=== PATIENT | male | born 1955 | race Caucasian/White ===

== ENCOUNTER 2018-09-25 20:11 | Emergency (ER) | payer BC, SELFPAY ==
[2018-09-25 20:22] VITALS: BP 142/83; PULSE 78; RESP 16; TEMP 36.8; O2SAT 96
[2018-09-25 21:14] LABS: Abs Immature Grans 0.05 k/cumm (0.0-0.09); HCT 51.2 % (40.0-50.0); Mean Corp. HGB Concentration 35.2 g/dL (32.0-36.0); Mean Corpuscular Hemoglobin 30.7 pg (27.0-33.0); Mean Corpuscular Volume 87.2 fL (80-95); Mean Platelet Volume 10.5 fL (8.0-11.0); Platelet Count 198 x1000/uL (130-400); RBC 5.87 m/cumm (4.50-6.00); RBC Distribution Width 12.7 % (11.8-14.1)
[2018-09-25 21:25] LABS: ALT 23 U/L (12-78); AST 17 U/L (15-37); Albumin 3.7 g/dL (3.4-5.0); Alkaline Phosphatase 90 U/L (46-116); Anion Gap 7.9 mmol/L (3-11); BUN 16 mg/dL (7-18); Bilirubin, Total 0.7 mg/dL (0.2-1.0); CO2 34.1 mmol/L (21.0-32.0); CREATININE 1.21 mg/dL (0.70-1.30); Calcium 8.8 mg/dL (8.5-10.1); Chloride 98 mmol/L (98-107); Glucose 123 mg/dL (70-100); Sodium 140 mmol/L (136-145); Total Protein 8.4 g/dL (6.4-8.2)
[2018-09-25 21:28] LABS: Potassium 2.8 mmol/L (3.5-5.1)
[2018-09-25 21:36] LABS: Absolute Lymphocyte Count 0.92 k/cumm (1.2-3.4); Absolute Monocyte Count 2.19 k/cumm (0.11-0.7); Atypical Lymphocytes % 0; Diff Comment Manual Differential; RBC Morphology Normal
[2018-09-25] MEDS: Acetaminophen 500 MG TAB 1000 MG PO (21:48)
[2018-09-25] MEDS: Sulfameth/Trimeth DS TAB 2 TAB PO (21:48)
--- NOTE | 2018-09-25 21:51 | W.ED.GENAD ---
Discharge Plan Disposition Patient Disposition: HOME Condition: Stable Discharge Details Chief Complaint: Cellulitis Clinical Impression: Cellulitis of foot, left, Hypokalemia Reason For Visit: left foot redness /pain Primary Care Provider: Rony Treviño ED Provider: Navneet Ryan Home Meds and New Rx's Prescriptions: New sulfamethoxazole-trimethoprim [Bactrim DS] 800-160 mg tablet 1 tab PO BID Qty: 10 RF: 0 Continued chlorthalidone 25 mg Tablet 25 mg PO DAILY RF: 0 diltiazem HCl 120 mg Capsule,Ext.Rel 24h Degradable 120 mg PO DAILY RF: 0 Curcumin 95 % Powder RF: 0 cephalexin [Keflex] 500 mg Capsule 500 mg PO Q6H RF: 0 Discharge Instructions Instructions: Cellulitis (ED), Hypokalemia (ED) Additional Instructions: Please continue to take your antibiotics as prescribed and until fully completed. Each potassium rich foods over the next couple days and follow-up with your primary care provider for reassessment of your labs due to your low potassium. Feel free to return to the emergency department for any new or worsening concerns, worsening symptoms after continued antibiotic for 24 hours, or no improvement after 48 hours. Referrals: Rony Treviño [Primary Care Provider] - 1 week (Please call the office and inform your primary care provider of your low potassium and cellulitis and schedule follow-up appointment) Discharge Data Discharge Date/Time-TO BE ENTERED AT DEPARTURE: 09/25/18 22:51 Medical Decision Making Patient presenting the emergency department for chief complaint of left foot cellulitis. Patient states he noticed this 3 days ago and 2 days ago saw a urgent care clinic that placed him on Keflex. Patient states he has taken approximately 7 doses as recommended but has noticed worsening symptoms. Patient denies any fever chills, nausea vomiting or systemic symptoms but localized ankle pain and foot pain. Patient states this started on his dorsal aspect of the distal foot and is now traveling approximately. Patient has significant erythema to the distal aspect of the dorsal left foot with spread of erythema up through the anterior ankle and both medial and lateral aspects of the ankle. Patient does have significant pain on range of motion of ankle but no significant effusion noted. Concern for worsening cellulitis so plan to check labs, give IV antibiotics, and draw blood cultures. Review of results show significant leukocytosis, hypokalemia, otherwise nondiagnostic labs. Patient given IV dose of cefazolin and, 2 tabs of Bactrim, and 60 mEq of potassium. Patient is on chlorothiazide own and was able to pull up previous labs which patient's potassium typically runs 3.5. Patient states that he has not been eating much potassium rich foods which she normally does to control his moderately low potassium. Patient was encouraged to increase oral intake of dietary potassium and to follow-up with primary care in regards to low potassium. Patient was informed that he should continue on Keflex 4 times daily as prescribed and was prescribed Bactrim 1 tab twice daily. Patient informed to return for any significant worsening of symptoms, or no improvement after 48 hours of antibiotic. After discussion of diagnosis and plan of care patient and significant other have no further needs, questions, or concerns and states clear understanding to return to the emergency department for any worsening symptoms. HPI General Mode of arrival: ambulatory. Date/Time Provider Initiated Documentation: 09/25/18 20:12. Limitations to Documentation: no limitations. Information obtained by: patient, family and RN notes reviewed. History of Present Illness 63 year old M presents to the emergency department with the chief complaint of left foot infection, described as moderate, with intensity rated at 6. Quality is described as aching and sharp, and is localized to the left and lower extremity. Patient started experiencing this day(s) (4) and it has been constant. No relieving factors improve symptom(s), No exacerbating factors reported . Patient notes no other symptoms.. Patient did receive the following treatments prior to arrival, other (Keflex) Related Data Home Medications Medication Instructions Recorded Confirmed Curcumin 09/25/18 cephalexin [Keflex] 500 mg PO Q6H 09/25/18 09/25/18 chlorthalidone 25 mg PO DAILY 09/25/18 09/25/18 diltiazem HCl 120 mg PO DAILY 09/25/18 09/25/18 sulfamethoxazole-trimethoprim 1 tab PO BID #10 tab 09/25/18 [Bactrim DS] Previous Rx's Medication Instructions Recorded sulfamethoxazole-trimethoprim 1 tab PO BID #10 tab 09/25/18 [Bactrim DS] Allergies Allergy/AdvReac Type Severity Reaction Status Date / Time amoxicillin Allergy Unverified 09/25/18 20:26 General Stated Complaint: Cellulitis GENNARO: 3 Review of Systems Constitutional Denies body ache(s), Denies chills and Denies fever(s) Cardiovascular Denies chest pain and Denies dyspnea Respiratory Denies dyspnea Gastrointestinal Denies abdominal pain, Denies nausea and Denies vomiting Integumentary/Breasts Reports rash [facility] Social History Smoking and Tabacco status: Never Exam Const General: cooperative, no acute distress and not ill appearing Orientation: alert, awake and oriented x3 HENMT Mouth: moist mucous membranes Resp Effort & Inspection: normal respiratory effort, able to speak in complete sentences and no respiratory distress Cardio Rate: regular rate Rhythm: regular rhythm Skin General skin exam: erythema (Dorsal left foot streaking proximally through ankle) Extrem Left lower extremity: ankle Details: tenderness Location: of the lateral malleolus, of the medial malleolus and anteriorly, no edema and abnormal ROM Details: pain with active ROM; no swelling and foot Details: normal capillary refill, tenderness Location: of the dorsal foot, warmth Location: of the dorsal foot, no edema and vascular exam Details: dorsalis pedis pulse present, posterior tibial pulse present and normal capillary refill Course Vital Signs Temperature 36.8 C 09/25/18 20:22 Pulse 78 09/25/18 20:22 Respiratory Rate 16 09/25/18 20:22 Blood Pressure 142/83 H 09/25/18 20:22 Pulse Oximetry 96 09/25/18 20:22 Temperature 36.8 C 09/25/18 20:22 Temperature Source Temporal Artery Scan 09/25/18 20:22 Pulse 78 09/25/18 20:22 Respiratory Rate 16 09/25/18 20:22 Respiratory Effort 09/25/18 21:07 Blood Pressure 142/83 H 09/25/18 20:22 Blood Pressure Position Supine 09/25/18 20:22 Pulse Oximetry 96 09/25/18 20:22 Oxygen Delivery Method Room Air 09/25/18 20:22 Oxygen Flow Rate 0 09/25/18 20:22 Lab/Test Results Lab/Test Results: 09/25/18 21:16 Blood Blood Culture - Pending 09/25/18 21:00 Blood Blood Culture - Pending Laboratory Tests Range/Units 09/25/18 09/25/18 21:00 21:00 WBC (4.4-10.8) k/cumm 11.50 H RBC (4.50-6.00) m/cumm 5.87 Hgb (13.5-17.5) g/dL 18.0 H Hct (40.0-50.0) % 51.2 H MCV (80-95) fL 87.2 MCH (27.0-33.0) pg 30.7 MCHC (32.0-36.0) g/dL 35.2 RDW (11.8-14.1) % 12.7 Plt Count (130-400) x1000/uL 198 MPV (8.0-11.0) fL 10.5 Immature Gran % 0.0 Neutrophils % 73.0 Band Neutrophils % % 0.0 Lymphocytes % 8.0 Atypical Lymphs % 0 Monocytes % 19.0 Eosinophils % 0.0 Basophils % 0.0 Absolute Neutrophils (1.2-6.7) k/cumm 8.40 H Absolute Lymphocytes (1.2-3.4) k/cumm 0.92 L Absolute Monocytes (0.11-0.7) k/cumm 2.19 H Absolute Eosinophils (0.0-0.7) k/cumm 0.00 Absolute Basophils (0.0-0.2) k/cumm 0.00 Differential Comment Manual differential RBC Morphology Normal Sodium (136-145) mmol/L 140 Potassium (3.5-5.1) mmol/L 2.8 L* Chloride (98-107) mmol/L 98 Carbon Dioxide (21.0-32.0) mmol/L 34.1 H Anion Gap (3-11) mmol/L 7.9 BUN (7-18) mg/dL 16 Creatinine (0.70-1.30) mg/dL 1.21 Estimated GFR/1.73 m2 (mL/min/1.73m2) >= 60.00 Glucose (70-100) mg/dL 123 H Calcium (8.5-10.1) mg/dL 8.8 Total Bilirubin (0.2-1.0) mg/dL 0.7 AST (15-37) U/L 17 ALT (12-78) U/L 23 Alkaline Phosphatase (46-116) U/L 90 Total Protein (6.4-8.2) g/dL 8.4 H Albumin (3.4-5.0) g/dL 3.7
[2018-09-25 22:25] VITALS: BP 135/76; PULSE 64; TEMP 37.1; O2SAT 95
[2018-09-25] MEDS: Potassium Chloride 20 MEQ TABCR 60 MEQ PO (22:34)
== END 2018-09-25 22:51 | disposition home or self-care (01) ==
PROVIDERS: Emergency Provider Nurse Practitioner Family; PCP Internal Medicine
DX: L03.116 Cellulitis of left lower limb (principal); E87.6 Hypokalemia
CPT/HCPCS: 36415; 80053; 87040; 96365; 99284; 85025

== ENCOUNTER → 2020-04-30 08:03 | Outpatient (BNVA) | payer MEDICARE, BC, SELFPAY | PROVIDERS: PCP Internal Medicine; Referring Provider Internal Medicine; Visit Provider Student in an Organized Health Care Education/Training Program | DX: R69 Illness, unspecified (principal) ==

== ENCOUNTER 2020-04-30 09:19 | Day surgery (SDC) | payer MEDICARE, BC, SELFPAY ==
[2020-04-30 09:33] VITALS: BP 139/75; PULSE 67; RESP 16; TEMP 36.7; O2SAT 95
[2020-04-30] MEDS: Lactated Ringers 1,000 ML 80 ML IV (10:00)
--- NOTE | 2020-04-30 10:24 | W.PM.DSUDISC ---
Discharge Plan Disposition Patient Disposition: HOME Condition: Good Discharge Details Reason For Visit: Left Carpal Tunnel Syndrome Attending Provider: Raz Wesley Primary Care Provider: Rony Treviño [place] Meds and New Rx's Prescriptions: New acetaminophen 500 mg tablet 500 mg PO Q6H PRN PRN (Reason: pain) Qty: 40 RF: 3 hydrocodone-acetaminophen 5-325 mg tablet 1 tab PO Q8H PRN PRN (Reason: pain) Qty: 3 RF: 0 ibuprofen 600 mg tablet 600 mg PO TID PRNQty: 30 RF: 3 Continued atorvastatin 20 mg tablet 20 mg PO DAILY RF: 0 gabapentin 300 mg capsule 300 mg PO QHS RF: 0 diltiazem HCl 120 mg Capsule,Ext.Rel 24h Degradable 120 mg PO DAILY RF: 0 Discharge Instructions Stand Alone Forms: Maryjane Boyle Tunnel Release Referrals: Raz Wesley MD [ [facility] STAFF PHYSICIAN] - Activity:: Elevate Remove Dressings/Wound Care:: 48 hours Shower/Bathe:: 48 hours Diet:: As Tolerated Discharge Orders Discharge Orders: Discharge Order (Routine); Ordered 04/30/20 Ordered By: Raz Wesley DS: Diagnosis Discharge Diagnosis (1) Left carpal tunnel syndrome: Status: Acute
[2020-04-30] MEDS: ceFAZolin 2 GM/50 ML BAG IVPB (10:32)
[2020-04-30] MEDS: Sodium Bicarbonate 50 MEQ/50 ML VIAL (10:39)
[2020-04-30 12:02] VITALS: BP 125/81; PULSE 60; RESP 16; TEMP 36.5; O2SAT 93
--- NOTE | 2020-04-30 12:11 | W.PM.OP ---
Date of service: 04/30/20 Time of Service: 11:34 Operative Note Operative Note DATE OF PROCEDURE: 04/30/20 POST-OP DIAGNOSIS: same PROCEDURE: Left Endoscopic Carpal Tunnel Release SURGEON: Raz Wesley ANESTHESIA: IRIS ESTIMATED BLOOD LOSS: 0 PATHOLOGY: none sent TOURNIQUET TIME: 36 COMPLICATIONS: Other (The scope had someting on the inside of the lens which prevented using it. There were no other ECTR scopes available so I had to use the ENT camera inside the ECTR housing.) Patient was transported to: same day Patient's condition: stable Indications: I have seen Chapito in clinic for symptoms of carpal tunnel syndrome. The numbness, tingling, and pain limited function. Clinical exam findings confirmed the diagnosis of carpal tunnel syndrome. Nonoperative measures such as bracing, time, activity modifications had been tried but disability and pain persisted. I discussed carpal tunnel release with the patient. I reviewed the risks of the procedure to include, but not limited to, bleeding, infection, pain, stiffness, incomplete release, damage to nerves or vessels, persistent numbness, recurrence. Despite these risks, the patient elected to proceed. Findings: There was tightened carpal tunnel. This was dilated and released successfully with the endoscopic with increased space within the tunnel. The antebrachial fascia was released proximally freeing the median nerve at the wrist. Procedure Description: Chapito was greeted in the preoperative holding area where the correct side was identified and marked. The consent was reviewed with the patient and signed. The history and physical was updated. All questions were answered. He was taken back to the operating room. The patient was placed into the supine position on the operating room table with the left arm on an arm board. A nonsterile tourniquet was placed high onto the arm. All bony prominences were well padded. Prophylactic antibiotics in the form of Cefazolin were administered. The left arm was then prepped with Chloraprep and draped in a standard fashion with stockinette and extremity drape. A timeout to confirm correct identity, side and site, procedure, allergies, anesthesia, and medical concerns was performed. The surgical site was marked in the volar wrist creases in line with the radial border of the fourth ray. This area was anesthetized with approximately 6cc of 1% Lidocaine. The limb was then exsanguinated with an Esmarch. The skin was incised with a 15 blade, approximately 1cm. The skin only was cut and the deeper tissue was dissected bluntly with a tenotomy scissor, avoiding passing nerve and venous structures. The fascia was penetrated and opened bluntly. A two-prong skin hook was placed under this proximal fascial edge. A series of hamate finders were used to identify and dilate the carpal tunnel. Synovial elevator was used to free synovial attachments to the underside of the transverse carpal ligament. My thumb was kept in the palm to nicko the distal extent of the carpal tunnel and correctly position the hand. The Microaire endoscope was inserted without difficulty and without resistance. However, there was poor visulaization. The scope was removed from the hand and inspected. All typical spots of issue were investigated but did not seem to have any issues with fogging or debris on the lens. This troubleshooting continued until was identified that there was fog and condensation on the inside of the lens of the camera. Unfortunately, there were no additional cameras for the ECT our system available. However, ENT camera was able to fit into the system and therefore was used. This provided excellent visualization. There was a lot of synovium in the area which made the case quite challenging either way. However, eventually I was able to demonstrate horizontally running fibers of the transverse carpal ligament (TCL). The distal extent of the TCL was visualized and the end of the scope palpated with the thumb. The blade was elevated and withdrawn from distal to proximal. The TCL was split into two flaps. The endoscope was reinserted to confirm complete release and any remnant ligament was incised. The scope was withdrawn and the proximal aspect of the carpal tunnel was grossly inspected and appeared release with the median nerve visible. The antebrachial fascia at the level of the wrist was then freed from the overlying skin and then the underlying median nerve with blunt dissection. This was transected longitudinally for about 3cm proximal to the wrist incision. The wound was then irrigated with easy flow of irrigant distally and proximally. The incision was closed with a single 4-0 Nylon suture. The wound was dressed with Xeroform, Gauze, Kerlix and Manolo. The tourniquet was deflated with the initial dressing and held with some pressure. Blood flow returned easily to all digits with capillary refill less than 2 seconds. The patient tolerated the procedure well and was returned to the Same Day Surgery area in a stable condition suffering no known complication.
== END 2020-04-30 12:27 | disposition home or self-care (01) ==
PROVIDERS: PCP Internal Medicine; Visit Provider Student in an Organized Health Care Education/Training Program
PROC: 01N54ZZ Release Median Nerve, Percutaneous Endoscopic Approach (ICD-10-PCS; CPT 29848; principal; 2020-04-30 12:30)
DX: G56.02 Carpal tunnel syndrome, left upper limb (principal); I10 Essential (primary) hypertension
CPT/HCPCS: 29848; J0690; J2704; L3650

== ENCOUNTER 2020-05-08 09:28 | Outpatient (CLI) | payer MEDICARE, BC, SELFPAY ==
--- NOTE | 2020-05-08 09:00 | DI.RAD_ITS ---
EXAM: XR KNEE LT 4V AP,LAT,BIBIANA,PAT CLINICAL HISTORY: acute knee pain TECHNIQUE: COMPARISON: No exams were available for comparison FINDINGS: Four views were obtained. There is mild narrowing of the medial tibiofemoral cartilaginous joint spa ce presumably on a degenerative basis. There is mild narrowing of the lateral patellofemoral cartila ginous joint space. The bones of the knee appear intact. There is a probable knee joint effusion. IMPRESSION: Mild degenerative changes as described above. There appears to be a knee joint effusion. RADIATION DOSE DELIVERED: Total DLP
== END 2020-05-08 09:48 ==
PROVIDERS: PCP Internal Medicine; Referring Provider Internal Medicine; Visit Provider Physician Assistant Surgical
DX: M17.12 Unilateral primary osteoarthritis, left knee (principal); M25.462 Effusion, left knee; M25.562 Pain in left knee; G56.02 Carpal tunnel syndrome, left upper limb; S76.112A Strain of left quadriceps muscle, fascia and tendon, initial encounter; X50.9XXA Other and unspecified overexertion or strenuous movements or postures, initial encounter; Z47.89 Encounter for other orthopedic aftercare
CPT/HCPCS: 99214; 73564

== ENCOUNTER → 2020-06-05 09:10 | Outpatient (BNVA) | payer MEDICARE, BC, SELFPAY | PROVIDERS: PCP Internal Medicine; Referring Provider Internal Medicine; Visit Provider Student in an Organized Health Care Education/Training Program | DX: M25.562 Pain in left knee (principal) | CPT/HCPCS: 99213 ==

== ENCOUNTER 2020-06-16 00:28 | Outpatient (CLI) | payer MEDICARE, BC, SELFPAY ==
--- NOTE | 2020-06-16 | DI.MRI_ITS ---
EXAM: MR UPPER JOINT RT WO CLINICAL HISTORY: RT SHOULDER PAIN,M75.101,M12.811,OTHER SPECIFIC ARTHROPATHY. TECHNIQUE: Multiplanar multisequence MRI was performed. COMPARISON: No exams were available for comparison FINDINGS: The examination is limited due to patient motion artifact. BONES: There is no fracture or contusion pattern. JOINTS: Moderate degenerative changes are seen at the acromioclavicular joint. Mild degenerative destin nges are seen at the greater tuberosity. The glenohumeral joint is normal. There is superior subluxa tion of the humeral head relative to the glenoid consistent with rotator cuff tear. TENDONS: Supraspinatus: There is a complete tear of the supraspinatus tendon at its midpoint. There is retrac tion of the muscle to the level of the acromioclavicular joint. Infraspinatus: There may also be a partial tear of the infraspinatus tendon anteriorly. Subscapularis: There is thickening and increased signal in the subscapularis tendon consistent with a partial tear and/or tendinosis. Teres Minor: Unremarkable. Biceps and [place]: The biceps tendon is poorly visualized proximally. There may be medial subluxatio n of the tendon proximally. MUSCLES: There is mild fatty atrophy of the supraspinatus muscle. GLENOID LABRUM: Unremarkable on this noncontrast examination. SOFT TISSUES: Unremarkable. LIGAMENTS: Unremarkable. OTHER: There is fluid seen in the subacromial subdeltoid bursa consistent with rotator cuff tear. Th ere is fluid seen in the subcoracoid bursa. IMPRESSION: 1. Examination limited by patient motion artifact. 2. Complete tear of the supraspinatus tendon with retraction to the level of the acromioclavicular cedric int. 3. Findings suspicious for partial tears of the infraspinatus and subscapularis tendons. Question of medial subluxation of the biceps tendon proximally. 4. Degenerative changes in the acromioclavicular joint. DATA REPOSITORY:
--- NOTE | 2020-06-16 07:30 | DI.MRI_ITS ---
EXAM: MR LOWER JOINT LT WO CLINICAL HISTORY: MENISCAL INJURY,LT KNEE PAIN,S76.112A,M75.562. TECHNIQUE: Multiplanar multisequence MRI was performed. COMPARISON: CR XR KNEE LT 4V AP,LAT,BIBIANA,PAT from 05/08/2020 FINDINGS: BONES: Area of contusion involving the lateral tibial plateau. JOINTS: Articular cartilage is unremarkable. There is a large joint effusion. TENDONS: Extensor mechanism: Unremarkable. Medial retinaculum: Unremarkable. Lateral retinaculum: Unremarkable. Popliteus: Unremarkable. MUSCLES: Mild edema is seen in the popliteus muscle. MENISCI: There is an oblique tear of the body and posterior horn of the medial meniscus. The lateral meniscus is unremarkable. SOFT TISSUES: Unremarkable. LIGAMENTS: Anterior Cruciate: There is a torn anterior cruciate ligament. Posterior Cruciate: Unremarkable. Medial Collateral:Mild fluid is seen around the medial collateral ligament which may represent a spra in. Lateral Collateral: Unremarkable. OTHER: IMPRESSION: 1. Tear of the body and posterior horn of the medial meniscus. 2. Torn ACL. 3. MCL sprain. 4. Contusion in the lateral tibial plateau. 5. Large joint effusion DATA REPOSITORY:
== END 2020-06-16 00:48 ==
PROVIDERS: PCP Internal Medicine; Visit Provider Student in an Organized Health Care Education/Training Program
DX: S83.512A Sprain of anterior cruciate ligament of left knee, initial encounter (principal); S83.412A Sprain of medial collateral ligament of left knee, initial encounter; S83.222A Peripheral tear of medial meniscus, current injury, left knee, initial encounter; M25.462 Effusion, left knee; M75.121 Complete rotator cuff tear or rupture of right shoulder, not specified as traumatic; M19.011 Primary osteoarthritis, right shoulder
CPT/HCPCS: 73721; 73221

== ENCOUNTER 2020-07-04 02:26 | Outpatient (CLI) | payer MEDICARE, BC, SELFPAY ==
[2020-07-05 17:05] LABS: COVID-19 RT-PCR Result NEGATIVE (Negative)
== END 2020-07-04 02:46 ==
PROVIDERS: PCP Internal Medicine; Visit Provider Student in an Organized Health Care Education/Training Program
DX: Z11.59 Encounter for screening for other viral diseases (principal); Z01.818 Encounter for other preprocedural examination
CPT/HCPCS: U0003

== ENCOUNTER 2020-07-09 09:02 | Day surgery (SDC) | payer MEDICARE, BC, SELFPAY ==
[2020-07-09] VITALS (9 sets, daily range): BP systolic 135–153; BP diastolic 78–119; PULSE 65–72; RESP 12–18; TEMP 36–36.4; O2SAT 91–96
[2020-07-09] MEDS: Lactated Ringers 1,000 ML 30 ML IV (09:50)
[2020-07-09] MEDS: ceFAZolin 2 GM/50 ML BAG IVPB (11:15)
--- NOTE | 2020-07-09 11:22 | W.PM.DSUDISC ---
Discharge Plan Disposition Patient Disposition: HOME Condition: Good Discharge Details Reason For Visit: Right Rotator Cuff tear and Left Knee Internal [place] Attending Provider: Raz Wesley Primary Care Provider: Rony Treviño Home Meds and New Rx's Prescriptions: New acetaminophen 500 mg tablet 1,000 mg PO Q8H PRN (Reason: pain) Qty: 90 RF: 3 oxycodone 5 mg tablet 5 mg PO Q6H PRN PRNQty: 8 RF: 0 Continued gabapentin 300 mg capsule 300 mg PO QHS RF: 0 diltiazem HCl 120 mg Capsule,Ext.Rel 24h Degradable 120 mg PO DAILY RF: 0 rosuvastatin 5 mg tablet 5 mg PO DAILY RF: 0 ibuprofen 600 mg tablet 600 mg PO TID PRNQty: 90 RF: 3 Discontinued acetaminophen 500 mg tablet 500 mg PO Q6H PRN PRN (Reason: pain) Qty: 40 RF: 3 naproxen sodium 220 mg Tablet 440 mg PO Q12H RF: 0 Discharge Instructions Stand Alone Forms: Maryjane smith/RCR Referrals: Raz Wesley MD [ [facility] STAFF PHYSICIAN] - Equipment/Supplies: Sling Activity:: In sling except for hygiene Remove Dressings/Wound Care:: 72 hours Shower/Bathe:: 72 hours Diet:: As Tolerated Discharge Orders Discharge Orders: Discharge Order (Routine); Ordered 07/09/20 Ordered By: Raz Wesley DS: Diagnosis Discharge Diagnosis (1) Traumatic tear of right rotator cuff: Status: Acute (2) Internal derangement of left knee: Status: Acute
[2020-07-09] MEDS: Bupivacaine 0.5% Pres-Free 30 ML VIAL (11:35)
[2020-07-09] MEDS: methylPREDNISolone ACETATE 80 MG/ML VIAL (11:35)
[2020-07-09] MEDS: EPINEPHrine 30 MG/30 ML VIAL (13:43)
--- NOTE | 2020-07-09 21:34 | ROE_ITS ---
Date of service: 07/09/20 Time of Service: 14:03 Operative Note Operative Note DATE OF PROCEDURE: 07/09/20 PRE-OP DIAGNOSIS: Right Rotator Cuff Tear and Left Knee Internal Derangement POST-OP DIAGNOSIS: same PROCEDURE: - Arthroscopic Rotator Cuff Repair - Extensive debridement of anterior and posterior glenohumeral joint and rotator cuff - Subacromial Debridement SURGEON: Raz Wesley [employer]ATIONAL [employer]ANK MANAGER: Arabella Santos ANESTHESIA: GETA and regional ESTIMATED BLOOD LOSS: 0 PATHOLOGY: none sent COMPLICATIONS: None Patient was transported to: PACU Patient's condition: stable Indications: I have seen Chapito in clinic for a painful shoulder. Pathology was confirmed based on MRI and exam findings. Nonoperative measures were exhausted but disability and pain persisted. I discussed shoulder arthroscopy and procedures. I reviewed the risks of the procedures to include, but not limited to, bleeding, infection, pain, stiffness, damage to nerves or vessels, recurrence, hardware failure, blood clot. Despite these risks, the patient elected to proceed. Additionally, Chapito has had pain of the left knee which has bone marrow edema and meniscal tearing. To focus on the shoulder, I offered an injection of the left knee at the same time as the rotator cuff tear repair. Findings: A diagnostic arthroscopy was performed with the following findings: Articular Side - Glenohumeral Joint: No significant arthritis change within the shoulder - Labrum: Complex tearing of the labrum anteriorly and superiorly. - Cuff: Complex and complete tear of the supraspinatus with exposed greater tuberosity, high grade partial subscapularis tear - Biceps: previously torn and not present within the shoulder Subacromial Side - Bursal: Thickened bursa and overwhelming inflammatory changes - Rotator Cuff: complx tear with stump of variable length on the greater tubero sity with some interval tearing between supraspinatus and infraspinatus - no signifiacnt anterolateral spurring Procedure Description: Chapito was greeted in the preoperative holding area where the correct side was identified and marked. The consent was reviewed with the patient and signed. The history and physical was updated. All questions were answered. Chapito was taken back to the PACU for administration of an intrascalene nerve block. He was then taken to the operating room. The patient was placed into the supine position on the operating room table. A general anesthetic was administered. Chapito was then positioned in the beach chair position. All bony prominences were well padded. The head was placed in a foam filter tank tender helper head in a neutral position. Prophylactic antibiotics in the form of Cefazolin were administered. Prior to starting the shoulder, the left knee was identified as the site of the injection. The lateral aspect of the knee was marked and prepped with alcohol. The knee was then injected with 8cc of 0.5% Bupivacaine and 80mg of Depo-Medrol. The right arm/shoulder was then prepped with Chloraprep and draped in a standard fashion with stockinette and shoulder drape. A timeout to confirm correct identity, side and site, procedure, allergies, anesthesia, and medical concerns was performed. The arm was placed into a pneumatic sumner, [email or web address]. The shoulder arthroscopy was then performed. The glenohumeral joint was injected with 20 cc of normal saline with good flow back. A standard posterior portal was made and the joint was entered atraumatically with a blunt arthroscope. Once inside we had good visualization of the structures of the glenohumeral joint. It was immediately apparent that the tear was quite extensive. There was no significant anterior tissue left. From the posterior portal, there is no visible supraspinatus with a large stump seen from the greater tuberosity. The subscapularis was embedded in scar tissue. An anterior portal was established with spinal needle localization. A 6.5 mm cannula was inserted. A probe was then used to perform a diagnostic arthroscopy. There is noted to be no significant cartilage damage of the glenoid humeral joint. The labrum was frayed significantly from anteriorly to superiorly. There were no loose bodies in the inferior pouch. The superior rotator cuff was obviously torn with large frayed edges apparent at the level of the glenoid and just medial to it with variable length of stump remaining against the tuberosity. The biceps tendon was not present in the shoulder from previous tearing. The subscapularis had a high-grade articular sided partial tear. I debrided down the scar tissue seen around the superior edge of the subscapularis and also debrided down any remnant [facility] on rotator interval for better visualization. There is a large frayed portion of subscapularis which was medial, at the level of the glenoid. There still was some anterior fibers remaining which kept the tension intact. However, there was exposed lesser tuberosity. Therefore, I performed a subscapularis repair. A 7.5 mm portal was established anterolaterally through the defect in the superior rotator cuff. I placed a single 4.5 mm Mytec Healix anchor into the lesser tuberosity after debriding the tuberosity with a shaver. 2 horizontal mattress sutures were placed into the body and the bulk of the subscapularis. There is notable stretching of the subscapularis and I attempted to place these into the bulk of the healthy- appearing tendon although it was quite medial. Once these were placed the tension was applied and that showed adequate reduction of the subscapularis back onto the lesser tuberosity. I tied these using standard arthroscopic knot tying techniques. After these were tied the sutures were cut and there is no to be a free edge of the upper subscapularis which I could probe off of the lesser tuberosity. Therefore, I placed another 4.5 mm Mytec Healix anchor with a single horizontal mattress suture into the upper edge of the subscapularis. This nicely reapproximated the subscapularis to the lesser tuberosity without any lift off. It was stable to 60 degrees of external rotation. The arthroscope was then inserted into the subacromial space. The 6.5 mm cannula was placed lateral to the CA ligament. There is dense bursa seen throughout with significant hemorrhagic type disease throughout the subacromial space. A complete bursectomy is performed anteriorly, posteriorly, and laterally with electrocautery and shaver. This had excellent exposure of the rotator cuff although anatomy was challenging given the complexity of the tear. It was a primary tear of the supraspinatus with some extension into the infraspinatus making this a reverse L-type pattern. A large chunk of the infraspinatus was still attached over the greater tuberosity covering some of the medial tuberosity. Using both letter cautery and shaver I debrided down the stump of tendon still attached the tuberosity as it was very variable in its length of attachment as well as of poor quality. Once this was debrided down to continue to debride the greater tuberosity to decorticate and roughen the bone for tendon healing. A second lateral portal was established for viewing. With 2 lateral portals, 1 for viewing and 1 for working, I was able to evaluate the tear morphology and assess mobility. Thankfully, the tendon was quite mobile although it was retracted just medial to the glenoid. Working from a slightly posterior to anterior direction the tendon was able to be reapproximated at least to the articular margin. I then used electrocautery to perform a debridement above and below the tendon. I also used a shaver to debride the frayed edges of the tendon for better visualization. The interval torn between the infraspinatus and supraspinatus, or possibly within the infraspinatus, was also debrided for better visualization. Mobility was once again assessed and I was able to easily bring the tendon over to the tuberosity. I then placed two 4.5 mm Mytec Healix anchors against the articular margin. These were placed slightly medial right on the articular margin given the intrasubstance tearing, and this is medializing the medial row just a slight amount. A total of 4 horizontal mattresses were then placed. These were tied from posterior to anterior, reapproximating the tendon down to the tuberosity. I was not able to cover the entire tuberosity but at least half of the tuberosity was covered and there was no visible articular margin once this medial row was tied. Given that there was still some remaining tendon to cover on the tuberosity proceeded with a lateral row fixation. 1 suture limb from each of the tight sutures was then incorporated into a knotless 4.75 mm Mytec Healix anchor. One was placed anteriorly one was placed posteriorly bridging over the excess tendon laterally. I then used one of the suture limbs from within the posterior lateral row anchor to place another horizontal mattress suture into the posterior edge of the reverse L tear. This was tied in nicely reapproximated this edge against the intact infraspinatus. There was no significant spurring. The scope equipment was removed from the shoulder. Excess fluid was evacuated. The portal sites were closed with 3-0 Monocryl. The wounds were dressed with Steri-Strips, 4 x 4's, ABDs, Medipore tape. A sling was applied. The patient tolerated the procedure well and was returned to the PACU in a stabl e condition suffering no known complication.
== END 2020-07-09 16:38 | disposition home or self-care (01) ==
PROVIDERS: PCP Internal Medicine; Visit Provider Student in an Organized Health Care Education/Training Program
PROC: (CPT 29827; principal; 2020-07-09 12:30)
PROC: (CPT 29827; 2020-07-09 12:30)
DX: S46.011A Strain of muscle(s) and tendon(s) of the rotator cuff of right shoulder, initial encounter (principal); S43.431A Superior glenoid labrum lesion of right shoulder, initial encounter; M25.562 Pain in left knee; M23.92 Unspecified internal derangement of left knee; M75.51 Bursitis of right shoulder; V86.55XA Driver of 3- or 4- wheeled all-terrain vehicle (ATV) injured in nontraffic accident, initial encounter; I10 Essential (primary) hypertension
CPT/HCPCS: 29827; 29826; 29823; 20610; C1713; 76942; J0690; J1040; J1100; J1885; J2250; J2405; J2704

== ENCOUNTER → 2020-07-24 08:50 | Outpatient (BNVA) | payer MEDICARE, BC, SELFPAY | PROVIDERS: PCP Internal Medicine; Referring Provider Internal Medicine; Visit Provider Student in an Organized Health Care Education/Training Program | DX: Z47.89 Encounter for other orthopedic aftercare (principal); M23.92 Unspecified internal derangement of left knee; I10 Essential (primary) hypertension ==

== ENCOUNTER → 2020-08-21 10:00 | Outpatient (BNVA) | payer MEDICARE, BC, SELFPAY | PROVIDERS: PCP Internal Medicine; Referring Provider Internal Medicine; Visit Provider Student in an Organized Health Care Education/Training Program | DX: Z47.89 Encounter for other orthopedic aftercare (principal) ==

== ENCOUNTER → 2020-10-02 09:45 | Outpatient (BNVA) | payer MEDICARE, BC, SELFPAY | PROVIDERS: PCP Internal Medicine; Visit Provider Student in an Organized Health Care Education/Training Program | DX: Z47.89 Encounter for other orthopedic aftercare (principal) ==

== ENCOUNTER → 2020-10-30 10:24 | Outpatient (BNVA) | payer MEDICARE, BC, SELFPAY | PROVIDERS: PCP Internal Medicine; Visit Provider Student in an Organized Health Care Education/Training Program | DX: M23.92 Unspecified internal derangement of left knee (principal); M25.811 Other specified joint disorders, right shoulder; S46.011S Strain of muscle(s) and tendon(s) of the rotator cuff of right shoulder, sequela | CPT/HCPCS: 99213 ==

== ENCOUNTER 2020-11-24 03:38 | Outpatient (CLI) | payer MEDICARE, BC, SELFPAY ==
[2020-11-24 10:33] LABS: Source Nasal/Nares
[2020-11-24 13:22] LABS: COVID-19 PCR Negative (Negative)
== END 2020-11-24 03:39 | disposition home or self-care (01) ==
LOC: LBO 03:38
PROVIDERS: PCP Internal Medicine; Visit Provider Student in an Organized Health Care Education/Training Program
DX: Z20.822 Contact with and (suspected) exposure to COVID-19 (principal); Z01.818 Encounter for other preprocedural examination
CPT/HCPCS: 87635

== ENCOUNTER 2020-11-25 11:30 | Day surgery (SDC) | payer MEDICARE, BC, SELFPAY ==
[2020-11-25] VITALS (8 sets, daily range): BP systolic 91–147; BP diastolic 63–88; PULSE 55–65; RESP 13–17; TEMP 36.4–36.8; O2SAT 94–96; BMI 29.8
[2020-11-25] MEDS: Celecoxib 200 MG CAP 400 MG PO (12:14)
[2020-11-25] MEDS: Acetaminophen 500 MG TAB 1000 MG PO (12:14)
--- NOTE | 2020-11-25 12:20 | ANES.PREOP_ITS ---
General Info Date of Service Date Performed: 11/25/20 Height: 5 ft 11 in Weight: 97 kg Body Mass Index (BMI): 29.8 Surgical Procedure: Operation Date: 11/25/20 14:40 Proposed Procedures Side Surgeon p Knee Arthroscopy Left Raz Wesley MD Meds Allergies and Home Medications Allergies Allergy/AdvReac Type Severity Reaction Status Date / Time amoxicillin Allergy Unverified 11/25/20 11:56 lisinopril AdvReac Intermediate lightheaded Verified 11/25/20 11:56 ness Home Medication Medication Instructions Recorded diltiazem HCl 120 mg PO DAILY 09/25/18 gabapentin 300 mg capsule 300 mg PO QHS 04/15/20 rosuvastatin 5 mg PO DAILY 07/07/20 acetaminophen 1,000 mg PO Q8H PRN #90 tab 07/09/20 ibuprofen 600 mg PO TID PRN #90 tab 07/09/20 Current Visit Medications: Current Medications Generic Name Dose Route Start Last Admin Trade Name Freq PRN Reason Stop Dose Admin Acetaminophen 1,000 mg 11/25/20 06:00 11/25/20 12:14 Acetaminophen 500 Mg Tab PO 11/25/20 16:00 1,000 mg PREOP AKHIL Administration Celecoxib 400 mg 11/25/20 06:00 11/25/20 12:14 Celecoxib 200 Mg Cap PO 11/25/20 16:00 400 mg PREOP AKHIL Administration Ringer's Solution 1,000 mls @ 80 mls/hr 11/25/20 06:00 IV 12/24/20 23:59 INFUSION AKHIL Cefazolin Sodium/Dextrose 2 gm in 50 mls @ 100 mls/hr 11/25/20 06:00 Ancef Duplex IVPB 11/25/20 23:59 PREOP AKHIL IV Miscellaneous Supplies 1 each 11/25/20 06:00 Iv Access IV 12/24/20 23:59 DIRECTED AKHIL Sodium Chloride 0 ml 11/25/20 06:00 Normal Saline Flush 10 Ml Syr IV 12/24/20 23:59 PRN PRN Sodium Chloride 0 ml 11/25/20 06:00 Normal Saline 10 Ml Vial IJ 12/24/20 23:59 DIRECTED PRN Sterile Water 0 ml 11/25/20 06:00 Water,Injection,Sterile 10 Ml Vial IJ 12/24/20 23:59 DIRECTED PRN Vital Signs and Lab Results Vital Signs Most Recent Vital Signs in EMR: Most Recent Vital Signs Temp Pulse Resp BP Pulse Ox 36.4 C L 65 16 147/88 H 96 11/25/20 12:02 11/25/20 12:02 11/25/20 12:02 11/25/20 12:02 11/25/20 12:02 Point of Care Results Nursing Point of Care Results: No Data to Display Lab Results Blood Type / Crossmatch: No Data to Display Complete Blood Count: White Blood Count 11.50 k/cumm (4.4-10.8) H 09/25/18 21:00 09/25/18 Red Blood Count 5.87 m/cumm (4.50-6.00) 09/25/18 21:00 09/25/18 Hemoglobin 18.0 g/dL (13.5-17.5) H 09/25/18 21:00 09/25/18 Hematocrit 51.2 % (40.0-50.0) H 09/25/18 21:00 09/25/18 Platelet Count 198 x1000/uL (130-400) 09/25/18 21:00 09/25/18 Complete Metabolic Panel: Sodium Level 140 mmol/L (136-145) 09/25/18 21:00 09/25/18 Potassium Level 2.8 mmol/L (3.5-5.1) L* 09/25/18 21:00 09/25/18 Chloride Level 98 mmol/L (98-107) 09/25/18 21:00 09/25/18 Carbon Dioxide Level 34.1 mmol/L (21.0-32.0) H 09/25/18 21:00 09/25/18 Blood Urea Nitrogen 16 mg/dL (7-18) 09/25/18 21:00 09/25/18 Creatinine 1.21 mg/dL (0.70-1.30) 09/25/18 21:00 09/25/18 Calcium Level 8.8 mg/dL (8.5-10.1) 09/25/18 21:00 09/25/18 Albumin 3.7 g/dL (3.4-5.0) 09/25/18 21:00 09/25/18 Glucose Level 123 mg/dL (70-100) H 09/25/18 21:00 09/25/18 Liver Function Panel: Alanine Aminotransferase (ALT/SGPT) 23 U/L (12-78) 09/25/18 21:00 09/25/18 Aspartate Amino Transf (AST/SGOT) 17 U/L (15-37) 09/25/18 21:00 09/25/18 Coagulation Panel: No Data to Display Cardiac Panel: No Data to Display Arterial Blood Gas: No Data to Display Venous Blood Gas: No Data to Display Pancreas Panel: No Data to Display Thyroid Panel: No Data to Display Infectious Disease: Coronavirus (COVID-19)(PCR) Negative (Negative) 11/24/20 09:51 11/24/20 Coronavirus 2019 Source Nasal/nares 11/24/20 09:51 11/24/20 Blood Cultures: No Data to Display Toxicology Panel: No Data to Display PFSH Active Problems Active Problems: Problem Status Onset Code Traumatic tear of right rotator cuff S46.011A Internal derangement of left knee M23.92 Strain of left quadriceps muscle, fascia and tendon, initial encounter S76.112A Left knee pain M25.562 Ganglion cyst of tendon sheath of right hand M67.441 Right trigger finger M65.30 Right carpal tunnel syndrome G56.01 Left carpal tunnel syndrome G56.02 Medical History Ganglion cyst of tendon sheath of right hand Hyperlipemia Hypertension Right carpal tunnel syndrome Right trigger finger Spinal stenosis Surgical History History of back surgery Hx of rhinoplasty Left carpal tunnel syndrome s/p ECTR 04/30/2020 Traumatic tear of right rotator cuff status post right shoulder arthroscopy with rotator cuff repair and biceps tenodesis: 07/09/2020 Social History Smoking/Tobacco Use Status: Former Tobacco Use Quit Date: 08/01/69 Smoking risk assessment performed?: Yes Alcohol Intake: current Alcohol Intake frequency: a few times a week Alcohol type: hard liquor Drug use: Never Substance use type: does not use 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 Do you feel safe at home: Yes Do you feel safe in your relationship?: Yes Anesthesia Assessment and Plan Anesthesia History Personal History: No History of Anesthesia Complications Family History: No Family History of Anesthesia Complications Exercise Tolerance Exercise Tolerance: Metabolic Equivalents>4 Pertinent Negatives Pertinent Negatives: No Symptoms of GERD Cardiac & Pulmonary Exam Cardiac Exam: Normal S1/S2 Heart Sounds Pulmonary Exam: Clear Bilateral Breath Sounds Airway Exam Known Difficult Airway: No Mallampati Class: 1 Mouth Opening: Normal (> 3cm) Thyromental Distance: Greater than 3 cm Neck Range of Motion: Full ROM Neck Circumference: Normal Teeth Condition: Normal Dentition ASA Classification ASA Score: ASA 2 ASA Emergency: No NPO Status NPO Status: NPO Clears >2 hours, Solids >8 hours Anesthesia Plan Anesthesia Technique: General Anesthesia Airway Planned: LMA Monitors Used: Standard Monitors
[2020-11-25] MEDS: Lactated Ringers 1,000 ML 80 ML IV (12:30)
[2020-11-25] MEDS: Bupivacaine 0.5% Pres-Free 30 ML VIAL (13:50)
--- NOTE | 2020-11-25 13:54 | W.PM.DSUDISC ---
Discharge Plan Disposition Patient Disposition: HOME Condition: Good Discharge Details Reason For Visit: Left knee arthroscopy Attending Provider: Raz Wesley Primary Care Provider: Rony Treviño Rowe Meds and New Rx's Prescriptions: New acetaminophen 500 mg capsule 1,000 mg PO Q8H PRN PRNQty: 90 RF: 0 hydrocodone-acetaminophen 5-325 mg tablet 1 tab PO Q6H PRN (Reason: pain) Qty: 6 RF: 0 ibuprofen 600 mg tablet 600 mg PO TID PRN (Reason: pain) Qty: 30 RF: 0 Continued gabapentin 300 mg capsule 300 mg PO QHS RF: 0 diltiazem HCl 120 mg Capsule,Ext.Rel 24h Degradable 120 mg PO DAILY RF: 0 rosuvastatin 5 mg tablet 5 mg PO DAILY RF: 0 Discontinued acetaminophen 500 mg tablet 1,000 mg PO Q8H PRN (Reason: pain) Qty: 90 RF: 3 ibuprofen 600 mg tablet 600 mg PO TID PRNQty: 90 RF: 3 Discharge Instructions Stand Alone Forms: Maryjane Knee Arthroscopy Equipment/Supplies: Partial Weight Bearing Crutches Activity:: Activity as Tolerated Remove Dressings/Wound Care:: 72 hours Shower/Bathe:: 72 hours Diet:: As Tolerated Discharge Orders Discharge Orders: Discharge Order (Routine); Ordered 11/25/20 Ordered By: Keith Sevilla DS: Diagnosis Discharge Diagnosis (1) Internal derangement of left knee: Status: Acute
--- NOTE | 2020-11-25 15:00 | W.ANESPOSTOP ---
Postoperative Evaluation Date, Time and Location Date Performed: 11/25/20 Time Performed: 15:01 Patient Location: Day Surgery Unit Vital Signs Most Recent Imported Vital Signs: Most Recent Vital Signs Temp Pulse Resp BP Pulse Ox 36.7 C 59 L 13 131/78 95 11/25/20 14:50 11/25/20 14:50 11/25/20 14:50 11/25/20 14:50 11/25/20 14:50 Pain Score Most Recent Pain Score: Most Recent Pain Score Pain Level 3 11/25/20 14:50 Assessment Mental Status: Awake (Alert & Oriented to Patient Baseline) Airway and Respiratory Function: Patent airway with normal (patient baseline) respiratory exam Cardiovascular Function: Hemodynamically Stable Hydration Status: Adequately Hydrated Nausea & Vomiting: No Nausea or Vomiting Pain: Pain is tolerable/mild (<5/10) Peripheral Nerve Block: Patient did not receive a nerve block
--- NOTE | 2020-11-25 20:31 | W.PM.OP ---
Date of service: 11/25/20 Time of Service: 14:09 Operative Note Operative Note DATE OF PROCEDURE: 11/25/20 PRE-OP DIAGNOSIS: Left Knee Medial Meniscus Tear, Left ACL Tear POST-OP DIAGNOSIS: same Left Knee Lateral Meniscus Tear, Left Knee Loose Body in Lateral Gutter PROCEDURE: Left Knee Arthroscopic Debridement, Partial Lateral and Medial Menisectomies, and Removal of Loose Bodies SURGEON: Raz Wesley ANESTHESIA TYPE: General LMA/ETT Refer to Anesthesia Record ESTIMATED BLOOD LOSS: 5 PATHOLOGY: none sent TOURNIQUET TIME: 0 COMPLICATIONS: None Patient was transported to: PACU Patient's condition: stable Indications: I have seen Chapito in clinic for symptoms of a meniscus tear. This was confirmed based on MRI and exam findings. Nonoperative measures were exhausted but disability and pain persisted. I discussed knee arthroscopy with meniscal intervention with the patient. I reviewed the risks of the procedure to include, but not limited to, bleeding, infection, pain, stiffness, damage to nerves or vessels, recurrence, blood clot. Despite these risks, the patient elected to proceed. 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 The consent was reviewed with the patient and signed. The history and physical was updated. All questions were answered. He was taken back to the operating room. The patient was placed into the supine position on the operating room table. All bony prominences were well padded. Prophylactic antibiotics in the form of cefazolin were administered. The left leg was then prepped with Chloraprep and draped in a standard fashion with stockinette and extremity drape. A timeout to confirm correct identity, side and site, procedure, allergies, anesthesia, and medical concerns was performed. The leg was placed into a pneumatic leg sumner, [email or web address]. A standard lateral portal was made at the lateral border of the patella tendon in line with the inferior pole of the patella, soft spot. The skin and deep tissue was incised sharply and the blunt trochar was inserted atraumatically. A diagnostic arthroscopy was performed and the findings are listed above. The suprapatellar pouch had some notable inflammatory changes. The patellofemoral articulation showed mild articular damage, grade I chondromalacia, as well as good tracking. The lateral gutter had multiple soft loose bodies within the lateral gutter and the medial gutter had no loose bodies. The knee was brought into some valgus stress in extension to open the medial compartment. A medial portal was made, localized by a spinal needle. The portal was created with an #11 blade through skin and capsule under direct visualization avoiding any meniscal injury. A probe was then inserted into the medial compartment. The medial compartment was fully inspected. The chondral surface of the tibia showed grade II chondromalacia and the surface of the femur showed some focal areas of grade III chondromalacia. The medial meniscus had a complex tear the posterior horn and body with a radial tear 3 to 4 mm medial to the posterior root. This disconnected the root from the medial meniscus. I drove the scope through the notch to evaluate the posterior attachments and it did show that the medial meniscus was well attached to the capsule making this mostly stable although without its connection to the root. After evaluation, the meniscus was debrided down to a stable base using a series of biters and arthroscopic annemarie. It was probed afterwards to confirm that the tear had been removed and the meniscus was stable. Cartilage surfaces were debrided of any flaps, leaving any intact fibers. The notch was then inspected which showed a torn ACL and an intact PCL. The ACL was in pieces with large chunks of tissue moving medially and laterally interposing itself between the femur and tibia. I used the shaver to debride down these edges. There did appear to be a few posterior fibers remaining but the bulk, greater than 90%, the ACL was torn. The leg was then brought into a figure of 4 position. The lateral compartment was fully inspected with the arthroscope and a probe. The chondral surface of the lateral femur showed no significant chondromalacia. The chondral surface of the lateral tibia showed no significant chondromalacia. The lateral meniscus had a complex tear within the posterior body just lateral to the root involving the central one third. After evaluation, the meniscus was debrided down to a stable base using a series of biters and arthroscopic annemarie. It was probed afterwards to confirm that the tear had been removed and the meniscus was stable. I did not brought the scope back into the lateral gutter for evaluation of the loose bodies. A secondary portal was made superolaterally for access. This was made under spinal needle localization. I then used a grabber to remove these loose bodies. They ended up being chunks of soft tissue. I removed at least 6 from the lateral gutter, all less than 4 to 5 mm in diameter. I then used the shaver with suction to remove any other loose bodies in this area. The arthroscope was brought back into the suprapatellar pouch and the leg was in full extension. The knee was thoroughly irrigated with the arthroscopic fluid on high flow and pressure. Inflow was stopped and excess fluid was removed. The wounds were closed with 4-0 Nylon. They were dressed with Xeroform, 4x4 gauze, ABD pad, Kerlix and an CARMENZA wrap. A cryo-cuff was applied. The patient tolerated the procedure well and was returned to the Same Day Surgery area in a stable condition suffering no known complication.
== END 2020-11-25 16:18 | disposition home or self-care (01) ==
PROVIDERS: PCP Internal Medicine; Visit Provider Student in an Organized Health Care Education/Training Program
PROC: (CPT 29870; principal; 2020-11-25 14:30)
DX: S83.232A Complex tear of medial meniscus, current injury, left knee, initial encounter (principal); S83.242A Other tear of medial meniscus, current injury, left knee, initial encounter; S83.272A Complex tear of lateral meniscus, current injury, left knee, initial encounter; M23.42 Loose body in knee, left knee; M94.262 Chondromalacia, left knee; X58.XXXA Exposure to other specified factors, initial encounter
CPT/HCPCS: 29880; J2001; J2704

== ENCOUNTER → 2020-12-08 10:30 | Outpatient (BNVA) | payer MEDICARE, BC, SELFPAY | PROVIDERS: PCP Internal Medicine; Referring Provider Internal Medicine; Visit Provider Physician Assistant | DX: Z47.89 Encounter for other orthopedic aftercare (principal); M23.92 Unspecified internal derangement of left knee ==

== ENCOUNTER → 2021-01-05 09:52 | Outpatient (BNVA) | payer MEDICARE, BC, SELFPAY | PROVIDERS: PCP Internal Medicine; Referring Provider Internal Medicine; Visit Provider Student in an Organized Health Care Education/Training Program | DX: Z47.89 Encounter for other orthopedic aftercare (principal); M23.92 Unspecified internal derangement of left knee; G56.01 Carpal tunnel syndrome, right upper limb | CPT/HCPCS: 99213 ==

== ENCOUNTER 2021-02-03 09:23 | Day surgery (SDC) | payer MEDICARE, BC, SELFPAY ==
--- NOTE | 2021-02-03 07:48 | PDOC.DSDIS_ITS ---
Discharge Plan Disposition Patient Disposition: HOME Condition: Good Discharge Details Reason For Visit: right ECTR Attending Provider: Raz Wesley Primary Care Provider: Rony Treviño [place] Meds and New Rx's Prescriptions: New hydrocodone-acetaminophen 5-325 mg tablet 1 tab PO Q6H PRNQty: 5 RF: 0 acetaminophen [Tylenol Extra Strength] 500 mg tablet 500 mg PO Q6H PRNQty: 30 RF: 0 ibuprofen 600 mg tablet 600 mg PO TID Qty: 30 RF: 0 Continued gabapentin 300 mg capsule 300 mg PO QHS RF: 0 diltiazem HCl 120 mg Capsule,Ext.Rel 24h Degradable 120 mg PO DAILY RF: 0 acetaminophen 500 mg capsule 1,000 mg PO Q8H PRN PRNQty: 90 RF: 0 ibuprofen 600 mg tablet 600 mg PO TID PRN (Reason: pain) Qty: 30 RF: 0 rosuvastatin 5 mg tablet 5 mg PO DAILY RF: 0 Discharge Instructions Stand Alone Forms: Maryjane Boyle Tunnel Release Referrals: Raz Wesley MD [ [facility] STAFF PHYSICIAN] - Activity:: Activity as Tolerated Remove Dressings/Wound Care:: 72 hours Shower/Bathe:: 72 hours Diet:: As Tolerated Discharge Orders Discharge Orders: Discharge Order (Routine); Ordered 02/03/21 Ordered By: Solange Nunn DS: Diagnosis Discharge Diagnosis (1) Right carpal tunnel syndrome: Status: Acute
[2021-02-03 09:45] VITALS: BP 132/85; PULSE 65; RESP 16; TEMP 36.3; O2SAT 94
--- NOTE | 2021-02-03 09:59 | W.ANESPRE ---
General Info Date of Service Date Performed: 02/03/21 Height: 5 ft 11 in Weight: 97 kg Body Mass Index (BMI): 29.8 Surgical Procedure: Operation Date: 02/03/21 10:55 Proposed Procedures Side Surgeon p Wrist ECTR Right Raz Wesley MD Meds Allergies and Home Medications Allergies Allergy/AdvReac Type Severity Reaction Status Date / Time amoxicillin Allergy as a young Unverified 02/03/21 09:50 adult-see comment lisinopril AdvReac Intermediate lightheaded Verified 02/03/21 09:50 ness Home Medication Medication Instructions Recorded diltiazem HCl 120 mg PO DAILY 09/25/18 gabapentin 300 mg capsule 300 mg PO QHS 04/15/20 rosuvastatin 5 mg PO DAILY 07/07/20 acetaminophen 1,000 mg PO Q8H PRN PRN #90 cap 11/25/20 ibuprofen 600 mg PO TID PRN #30 tab 11/25/20 acetaminophen [Tylenol Extra 500 mg PO Q6H PRN #30 tab 02/03/21 Strength] hydrocodone-acetaminophen 1 tab PO Q6H PRN #5 tab 02/03/21 ibuprofen 600 mg PO TID #30 tab 02/03/21 Current Visit Medications: Current Medications Generic Name Dose Route Start Last Admin Trade Name Freq PRN Reason Stop Dose Admin Acetaminophen 650 mg 02/03/21 07:48 Acetaminophen 325 Mg Tab PO Q4H PRN PRN Hydrocodone Bitart/Acetaminophen 0 tab 02/03/21 07:48 Hydrocodone 5/Acetaminophen 325 Tab PO Q3H PRN PRN Pain Ringer's Solution 1,000 mls @ 80 mls/hr 02/03/21 06:00 IV 03/01/21 23:59 INFUSION AKHIL Cefazolin Sodium/Dextrose 2 gm in 50 mls @ 100 mls/hr 02/03/21 06:00 Ancef Duplex IVPB 02/03/21 16:00 PREOP AKHIL Ondansetron HCl 4 mg/ Sodium 52 mls @ 200 mls/hr 02/03/21 07:48 Chloride IVPB Q6H PRN PRN IV Miscellaneous Supplies 1 each 02/03/21 06:00 Iv Access IV 03/01/21 23:59 DIRECTED AKHIL Sodium Chloride 0 ml 02/03/21 06:00 Normal Saline Flush 10 Ml Syr IV 03/01/21 23:59 PRN PRN Sodium Chloride 0 ml 02/03/21 06:00 Normal Saline 10 Ml Vial IJ 03/01/21 23:59 DIRECTED PRN Sterile Water 0 ml 02/03/21 06:00 Water,Injection,Sterile 10 Ml Vial IJ 03/01/21 23:59 DIRECTED PRN PFSH Active Problems Active Problems: Problem Status Onset Code Left knee pain M25.562 Strain of left quadriceps muscle, fascia and tendon, initial encounter S76.112A Internal derangement of left knee M23.92 Status post arthroscopy of left knee 11/25/20 Z98.890 Traumatic tear of right rotator cuff S46.011A Ganglion cyst of tendon sheath of right hand M67.441 Right trigger finger M65.30 Right carpal tunnel syndrome G56.01 Left carpal tunnel syndrome G56.02 Medical History Medical History Ganglion cyst of tendon sheath of right hand Hyperlipemia Hypertension Right carpal tunnel syndrome Right trigger finger Spinal stenosis Surgical History Surgical History History of back surgery Hx of rhinoplasty Left carpal tunnel syndrome s/p ECTR 04/30/2020 S/P rotator cuff repair Status post arthroscopy of left knee (11/25/20) s/p left knee arthroscopy with arthroscopic debridement, partial lateral and medial menisectomies and removal of loose bodies Traumatic tear of right rotator cuff status post right shoulder arthroscopy with rotator cuff repair and biceps tenodesis: 07/09/2020 Tobacco Smoking/Tobacco Use Status: Former Tobacco Use Alcohol Alcohol Intake: current Alcohol intake frequency: a few times a week Alcohol type: hard liquor Substance Use Substance use: Never Substance use type: does not use Vital Signs and Lab Results Vital Signs Most Recent Vital Signs in EMR: Most Recent Vital Signs Temp Pulse Resp BP Pulse Ox 36.3 C L 65 16 132/85 94 02/03/21 09:45 02/03/21 09:45 02/03/21 09:45 02/03/21 09:45 02/03/21 09:45 Lab Results Blood Type / Crossmatch: No Data to Display Complete Blood Count: No Data to Display Complete Metabolic Panel: No Data to Display Liver Function Panel: No Data to Display Coagulation Panel: No Data to Display Cardiac Panel: No Data to Display Arterial Blood Gas: No Data to Display Venous Blood Gas: No Data to Display Pancreas Panel: No Data to Display Thyroid Panel: No Data to Display Infectious Disease: No Data to Display Blood Cultures: No Data to Display Toxicology Panel: No Data to Display Anesthesia Assessment and Plan Anesthesia History Personal History: No History of Anesthesia Complications Family History: No Family History of Anesthesia Complications Exercise Tolerance Exercise Tolerance: Metabolic Equivalents>4 Pertinent Negatives Pertinent Negatives: No Symptoms of GERD, No Major Cardiovascular Symptoms or Complaints, No Major Pulmonary Symptoms or Complaints and No History of CVA/TIA Cardiac & Pulmonary Exam Cardiac Exam: Normal S1/S2 Heart Sounds Pulmonary Exam: Clear Bilateral Breath Sounds Airway Exam Known Difficult Airway: No Mallampati Class: 1 Mouth Opening: Normal (> 3cm) Thyromental Distance: Greater than 3 cm Neck Range of Motion: Full ROM Neck Circumference: Normal Teeth Condition: Normal Dentition ASA Classification ASA Score: ASA 2 Emergency Case?: No NPO Status NPO Status: NPO Clears >2 hours, Solids >8 hours Anesthesia Plan Resuscitation Status: Full Code Anesthesia Technique: General Anesthesia Airway Planned: Natural Airway Monitors Used: Standard Monitors
[2021-02-03] MEDS: Lactated Ringers 1,000 ML 80 ML IV (10:00)
[2021-02-03 10:02] VITALS: BMI 29.8
[2021-02-03] MEDS: ceFAZolin 2 GM/50 ML BAG IVPB (10:42)
[2021-02-03] MEDS: Lidocaine 1% Pres-Free 5 ML VIAL (10:55)
[2021-02-03] MEDS: Sodium Bicarbonate 50 MEQ/50 ML VIAL (10:56)
[2021-02-03] MEDS: Bupivacaine 0.25% Pres-Free 30 ML VIAL (10:58)
[2021-02-03] MEDS: methylPREDNISolone ACETATE 80 MG/ML VIAL (10:58)
[2021-02-03 11:10] VITALS: BP 121/77; PULSE 63; RESP 16; TEMP 36.3; O2SAT 92
--- NOTE | 2021-02-03 11:11 | W.ANESPOSTOP ---
Postoperative Evaluation Date, Time and Location Date Performed: 02/03/21 Time Performed: 11:11 Patient Location: Day Surgery Unit Vital Signs Most Recent Imported Vital Signs: Most Recent Vital Signs Temp Pulse Resp BP Pulse Ox 36.3 C L 65 16 132/85 94 02/03/21 09:45 02/03/21 09:45 02/03/21 09:45 02/03/21 09:45 02/03/21 09:45 Pain Score Most Recent Pain Score: Most Recent Pain Score Pain Level 3 02/03/21 09:45 Assessment Mental Status: Awake (Alert & Oriented to Patient Baseline) Airway and Respiratory Function: Patent airway with normal (patient baseline) respiratory exam Cardiovascular Function: Hemodynamically Stable Hydration Status: Adequately Hydrated Nausea & Vomiting: No Nausea or Vomiting Pain: Pt. Denies Any Pain Peripheral Nerve Block: Patient did not receive a nerve block
[2021-02-03 11:42] VITALS: BP 137/83; PULSE 59; RESP 16; TEMP 36.3; O2SAT 94
--- NOTE | 2021-02-04 06:30 | W.PM.OP ---
Date of service: 02/03/21 Time of Service: 10:30 Operative Note Operative Note DATE OF PROCEDURE: 02/03/21 PRE-OP DIAGNOSIS: Right carpal tunnel syndrome, left knee chondromalacia POST-OP DIAGNOSIS: same PROCEDURE: Right Endoscopic Carpal Tunnel Release Left Knee Injection SURGEON: Raz Wesley ANESTHESIA TYPE: General:No Airway Refer to Anesthesia Record ESTIMATED BLOOD LOSS: 0 PATHOLOGY: none sent TOURNIQUET TIME: 12 COMPLICATIONS: None Patient was transported to: same day Patient's condition: stable Indications: I have seen Chapito in clinic for symptoms of carpal tunnel syndrome. The numbness, tingling, and pain limited function. Clinical exam findings of numbness as well as thenar atrophy confirmed the diagnosis of carpal tunnel syndrome. Nonoperative measures such as bracing, time, activity modifications had been tried but disability and pain persisted. I discussed carpal tunnel release with the patient. I reviewed the risks of the procedure to include, but not limited to, bleeding, infection, pain, stiffness, incomplete release, damage to nerves or vessels, persistent numbness, recurrence. Despite these risks, the patient elected to proceed. Findings: There was tightened carpal tunnel. There was significant inflammatory change seen in the carpal tunnel. All the tissue encountered deep to the palmar and antebrachial fascia was red and inflamed. This tissue was dense and made visualization challenging with necessary repeated passes of the synovial elevator and the scope. The carpal tunnel was dilated and released successfully with the endoscopic with increased space within the tunnel. The antebrachial fascia was released proximally freeing the median nerve at the wrist. Procedure Description: Chapito was greeted in the preoperative holding area where the correct side was identified and marked. The consent was reviewed with the patient and signed. The history and physical was updated. All questions were answered. Chapito was taken back to the operating room. The patient was placed into the supine position on the operating room table with the right arm on an arm board. A nonsterile tourniquet was placed high onto the arm. All bony prominences were well padded. Prophylactic antibiotics in the form of Cefazolin were administered. The right arm was then prepped with Chloraprep and draped in a standard fashion with stockinette and extremity drape. A timeout to confirm correct identity, side and site, procedure, allergies, anesthesia, and medical concerns was performed. The surgical site was marked in the volar wrist creases in line with the radial border of the fourth ray. This area was anesthetized with approximately 6cc of 1% Lidocaine. The limb was then exsanguinated with an Esmarch. The skin was incised with a 15 blade, approximately 1cm. The skin only was cut and the deeper tissue was dissected bluntly with a tenotomy scissor, avoiding passing nerve and venous structures. The fascia was penetrated and opened bluntly. A two-prong skin hook was placed under this proximal fascial edge. Immediately there was notable dense red and thickened tissue seen at this level. A series of hamate finders were used to identify and dilate the carpal tunnel. Synovial elevator was used to free synovial attachments to the underside of the transverse carpal ligament. My thumb was kept in the palm to nicko the distal extent of the carpal tunnel and correctly position the hand. The Microaire endoscope was inserted without difficulty and without resistance. However, this point, visualization was poor. The fibers of the transverse carpal ligament could be visualized through a dense veil of inflammatory tissue but only intermittently and not at the distal extent. Therefore I returned with the dilators and then the synovial elevator. I did this multiple times, placed the scope back in the carpal tunnel to evaluate. It did take multiple passes in order to free up enough synovial attachments such that the transverse carpal ligament could be viewed all the way to his distal extent. However, there is dense inflammatory tissue and synovitis seen surrounding the scope. With much improved visualization, the distal extent of the TCL was visualized and the end of the scope palpated with the thumb. The blade was elevated and withdrawn from distal to proximal. The TCL was split into two flaps. The endoscope was reinserted to confirm complete release and any remnant ligament was incised. The scope was withdrawn and the proximal aspect of the carpal tunnel was grossly inspected and appeared release with the median nerve visible. The antebrachial fascia at the level of the wrist was then freed from the overlying skin and then the underlying median nerve with blunt dissection. This was transected longitudinally for about 3cm proximal to the wrist incision. The wound was then irrigated with easy flow of irrigant distally and proximally. The incision was closed with a single 4-0 Nylon suture. The wound was dressed with Xeroform, Gauze, Kerlix and Manolo. The tourniquet was deflated with the initial dressing and held with some pressure. Blood flow returned easily to all digits with capillary refill less than 2 seconds. The left knee was then injected. The superolateral border of the patella was identified and marked. The skin was prepped with alcohol. The knee joint was entered without difficulty and the injection, consisting of 6cc of 0.5% Bupivicaine and 80mg of DepoMedrol, was injected without resistance. The patient tolerated the procedure well and the injection site was dressed with a Band-Aid. The patient tolerated the procedure well and was returned to the Same Day Surgery area in a stable condition suffering no known complication.
== END 2021-02-03 11:52 | disposition home or self-care (01) ==
LOC: SUR 09:23
PROVIDERS: PCP Internal Medicine; Visit Provider Student in an Organized Health Care Education/Training Program
PROC: 01N54ZZ Release Median Nerve, Percutaneous Endoscopic Approach (ICD-10-PCS; CPT 29848; principal; 2021-02-03 10:45)
DX: G56.01 Carpal tunnel syndrome, right upper limb (principal); M94.262 Chondromalacia, left knee; I10 Essential (primary) hypertension
CPT/HCPCS: 29848; 20610; J0690; J1040; J2001

== ENCOUNTER → 2021-04-03 08:56 | Outpatient (BNVA) | payer MEDICARE, BC, SELFPAY | PROVIDERS: PCP Internal Medicine; Referring Provider Internal Medicine | DX: Z47.89 Encounter for other orthopedic aftercare (principal); R20.8 Other disturbances of skin sensation ==

== ENCOUNTER 2022-05-13 14:25 | Outpatient (CLI) | payer MEDICARE, BC, SELFPAY ==
--- NOTE | 2022-05-13 14:25 | DI.RAD_ITS ---
Exam(s) XR SHOULDER RT COMPLETE 2+V EXAM: XR SHOULDER RT COMPLETE 2+V CLINICAL HISTORY: swelling and pain s/p fall. TECHNIQUE: 2D digital imaging was performed of the right shoulder. Two images were obtained. AP an d axillary views were obtained. COMPARISON: No exams were available for comparison FINDINGS: BONES: No acute fracture is present. No bony destructive lesion is seen. JOINTS: No dislocation present. Degenerative changes are seen in the shoulder. SOFT TISSUE: Normal. IMPRESSION: No acute fracture or dislocation. DATA REPOSITORY: RADIATION DOSE DELIVERED:
--- NOTE | 2022-05-13 14:30 | DI.RAD_ITS ---
Exam(s) XR WRIST LT COMPLETE EXAM: XR WRIST LT COMPLETE CLINICAL HISTORY: swelling and pain s/p fall. TECHNIQUE: 2D digital imaging was performed of the left wrist. Three images were obtained. PA, obl ique and lateral views were obtained. COMPARISON: No exams were available for comparison FINDINGS: BONES: On the lateral view, there is an os of thick density at the dorsum of the wrist. No bony dest ructive lesion is seen. JOINTS: The carpal bones are normally aligned. SOFT TISSUE: Vascular calcifications are present. IMPRESSION: Calcific density on the dorsum of the wrist on the lateral view. This can be seen with a triquetral fracture. Please correlate with the patient's site of pain. DATA REPOSITORY: RADIATION DOSE DELIVERED:
== END 2022-05-13 14:26 | disposition home or self-care (01) ==
LOC: DIORS 14:25
PROVIDERS: PCP Internal Medicine; Referring Provider Internal Medicine; Visit Provider Physician Assistant Surgical
DX: S60.212A Contusion of left wrist, initial encounter (principal); S46.911A Strain of unspecified muscle, fascia and tendon at shoulder and upper arm level, right arm, initial encounter; W01.0XXA Fall on same level from slipping, tripping and stumbling without subsequent striking against object, initial encounter
CPT/HCPCS: 99214; 73030; 73110

== ENCOUNTER → 2022-07-02 11:05 | Outpatient (BNVA) | payer MEDICARE, BC, SELFPAY | PROVIDERS: PCP Internal Medicine; Referring Provider Internal Medicine; Visit Provider Student in an Organized Health Care Education/Training Program | DX: M25.511 Pain in right shoulder (principal); X58.XXXA Exposure to other specified factors, initial encounter; S46.011S Strain of muscle(s) and tendon(s) of the rotator cuff of right shoulder, sequela; S46.911A Strain of unspecified muscle, fascia and tendon at shoulder and upper arm level, right arm, initial encounter | CPT/HCPCS: 99213 ==

== ENCOUNTER → 2022-07-16 13:41 | Outpatient (CLI) | payer MEDICARE, BC, SELFPAY ==
--- NOTE | 2022-07-16 08:30 | DI.MRI_ITS ---
Exam(s) MR UPPER JOINT RT WO EXAM: MR UPPER JOINT RT WO CLINICAL HISTORY: ? RTC TEAR, RT SHOULDER STRAIN, S46.911A TECHNIQUE: Multiplanar multisequence MRI of the shoulder was performed. COMPARISON: MR MR UPPER JOINT RT WO from 06/16/2020 CR XR SHOULDER RT COMPLETE 2+V from 05/13/2022 FINDINGS: MARROW:There is no evidence of fracture, Hill-Sachs deformity, nor ominous osseous lesions. Evidence of prior interval rotator cuff surgery ROTATOR CUFF MECHANISM: AC JOINT/ACROMIUM: Mild degenerative changes in the AC joint. No evidence of interval resection.. There is no evidence of os acromiale. Supraspinatus: There is full-thickness tear with retraction of the musculotendinous junction to the m edial 3rd of the humeral head level. Some atrophy evident in supraspinatus. Infraspinatus: Partial tearing evident Teres Minor: Intact. No evidence of tear nor muscle atrophy. Subscapularis/anterior cuff: Exhibits some impingement between lesser tuberosity and the coracoid pro cess. Some fiber attenuation but no full-thickness tear evident BICEPS TENDON: Biceps attenuated is attenuated consistent with tearing of this structure LABRUM: No labral tear identified. No evidence of paralabral cyst. GLENOHUMERAL JOINT: No large joint effusion. No loose intra-articular bodies evident. Mild-moderate degenerative changes. No degenerative subarticular cysts.. The inferior glenohumeral ligament is i ntact. QUADRILATERAL SPACE: No evidence of mass in the region of the axillary nerve and dorsal circumflex hu meral vessels. Visualized triceps muscle at this level appears unremarkable. IMPRESSION: 1. Compared to 06/16/2020 there has been interval rotator cuff surgery there is now evidence of full- thickness tear of supraspinatus and partial full-thickness tear of the infraspinatus. There is some muscle atrophy evident the supraspinatus. 2. Biceps tendon is attenuated and assumed to be torn. No obvious labral tears on this non arthrogra m study. 3. Other findings as above. DATA REPOSITORY:
== END ==
PROVIDERS: PCP Internal Medicine; Visit Provider Student in an Organized Health Care Education/Training Program
DX: M25.511 Pain in right shoulder; S46.911A Strain of unspecified muscle, fascia and tendon at shoulder and upper arm level, right arm, initial encounter; M75.101 Unspecified rotator cuff tear or rupture of right shoulder, not specified as traumatic; S46.211A Strain of muscle, fascia and tendon of other parts of biceps, right arm, initial encounter
CPT/HCPCS: 73221

== ENCOUNTER → 2022-07-21 13:09 | Outpatient (BNVA) | payer MEDICARE, BC, SELFPAY | PROVIDERS: PCP Internal Medicine; Referring Provider Internal Medicine; Visit Provider Student in an Organized Health Care Education/Training Program | DX: M62.81 Muscle weakness (generalized) (principal); S46.011S Strain of muscle(s) and tendon(s) of the rotator cuff of right shoulder, sequela; S46.211D Strain of muscle, fascia and tendon of other parts of biceps, right arm, subsequent encounter; W01.0XXD Fall on same level from slipping, tripping and stumbling without subsequent striking against object, subsequent encounter | CPT/HCPCS: 99215 ==

== ENCOUNTER 2022-07-23 10:14 | Day surgery (SDC) | payer MEDICARE, BC, SELFPAY ==
--- NOTE | 2022-07-23 07:06 | W.PM.OP ---
Operative Note Operative Note DATE OF PROCEDURE: 07/23/22 PRE-OP DIAGNOSIS: Right: 1. Rotator cuff re-tear 2. Proximal biceps rupture POST-OP DIAGNOSIS: same PROCEDURE: Right: 1. Revision rotator cuff repair, CPT# 98083. This involved repair of the [subscapularis and] supraspinatus using anchors and sutures to reattach the rotator cuff back to the footprint of the [lesser and] greater tuberosity. 2. Arthroscopic superior capsular reconstruction, CPT #82246: This involved dermal allograft reconstruction of deficient superior capsule to maintain glenohumeral stability and prevent superior humeral migration. 3. Extensive debridement, CPT# 45732. This involved using arthroscopic hand instruments, power instruments, and radiofrequency instruments to release the long head of the biceps tendon and debride areas of labral tearing, synovitis[, and chondromalacia about the biceps groove] within the glenohumeral joint anteriorly, superiorly and posteriorly. 4. Subacromial decompression with partial acromioplasty, CPT# 66742. This involved using arthroscopic power instruments and a radiofrequency wand to complete a bursectomy and remove bone spurs on the undersurface of the acromion. The veterinary technician assistant was medically required in order to help assist in techniques above, which require positioning the arm, holding the arthroscope, and manipulating multiple instruments and sutures at the same time. This cannot be done without the help of an experienced veterinary technician assistant. SURGEON: Miguel Narvaez STUCCO MASON: Evelyne Barlow ANESTHESIA TYPE: Local By Surgeon, General LMA/ETT and Primary Nerve Block Refer to Anesthesia Record ESTIMATED BLOOD LOSS: 10 PATHOLOGY: none sent COMPLICATIONS: None Patient was transported to: PACU Patient's condition: stable Implants: Arthrex: 4.75mm SwiveLocks x [ ] and [3.9 mm knotless corkscrew] Indications: The patient was diagnosed with the above conditions and appropriately indicated for surgical intervention. Please see complete medical record for details. Findings: Exam under anesthesia: [] Glenohumeral joint: [] Subacromial space: [] Procedure Description: In the operating room, general anesthesia was induced. Bilateral shoulders were examined. The patient was positioned in the beachchair position. All bony prominences were well-padded. Preoperative antibiotics were administered. The shoulder was prepped and draped in the usual sterile fashion. The correct patient, procedure, and side of the procedure were all verified prior to incision. Starting through the posterior portal a standard complete diagnostic arthroscopy was performed of the glenohumeral joint including inspection of the long head of the biceps, anterior and superior labrum, subscapularis tendon, supraspinatus and infraspinatus tendons, and axillary recess. The glenoid and humeral head cartilage as well as the posterior labrum were inspected from an anterior viewing portal. Significant findings and interventions noted above. [The biceps tendon was released from the superior labrum using arthroscopic scissors]. [Insert subscap repair] [Insert arthroscopic biceps tenodesis] [Insert subacromial decompression] [Insert supraspinatus repair] The shoulder was drained of arthroscopic fluid. All portal sites were copiously irrigated. These incisions were closed using 3-0 Monocryl in a buried fashion and then covered with Mastisol, Steri-Strips, Xeroform, dry gauze, and ABDs. The dressings were covered and secured with Medipore tape. The operative extremity was placed into a sling for immobilization. The patient awoke from anesthesia without complication and was transferred to the recovery room in a stable condition.
--- NOTE | 2022-07-23 07:06 | W.PM.DSUDISC ---
Date of service: 07/23/22 Time of Service: 15:00 Discharge Plan Disposition Patient Disposition: Home Discharge Details Attending Provider: Miguel Narvaez Primary Care Provider: Rony Treviño Home Meds and New Rx's Prescriptions: Continued chlorthalidone 15 mg tablet 15 mg PO DAILY gabapentin 300 mg capsule 300 mg PO QHS diltiazem HCl 120 mg Capsule,Ext.Rel 24h Degradable 120 mg PO DAILY acetaminophen 500 mg capsule 1,000 mg PO Q8H PRN PRNQty: 90 0RF rosuvastatin 5 mg tablet 5 mg PO DAILY Label Comments: TAKE ONE TABLET BY MOUTH ONCE DAILY acetaminophen [Tylenol Extra Strength] 500 mg tablet 500 mg PO Q6H PRNQty: 30 0RF Discontinued meloxicam 15 mg tablet 15 mg PO DAILY Qty: 30 3RF Discharge Instructions Additional Instructions: Surgery: Right shoulder arthroscopy with [revision rotator cuff repair, superior capsule reconstruction, extensive debridement, and subacromial decompression.] Activity: [For 6 weeks,] you should keep your arm at your side in a neutral position at all times except for physical therapy. Do not try to lift or raise your arm using your own muscles. You should use the sling whenever you are out of the house. You may have to adjust the abduction pillow or remove it for comfort. At home it is best to remove the sling and rest the arm on a pillow at your side or support the operative side with your other hand. You may allow the arm to dangle at your side. A physical therapy prescription will be sent electronically to begin in about 3 weeks. Prescriptions: Aspirin 81 mg take 1 daily to prevent a blood clot for 7 days Naproxen 250 mg take 1-2 every 12 hours with a meal as needed for moderate pain Oxycodone 5 mg take 1-2 every 4-6 hours as needed for severe pain You may use [id number] Tylenol (acetaminophen) as needed for mild pain. These pain medications may be taken all at once or in different combinations as needed. Also, recommend Colace (docusate) as a stool softener as surgery and pain medicine cause constipation. You may try [id number] diphenhydramine (Benadryl) 25-50 mg nightly as a sleep aid Dressings: Remove shoulder bandage after 3 days. Leave the sticky Steri-Strips in place until they fall off or remove them after you shower. Cover the incisions with Band-Aids or leave them open to air. You may shower after 5 days. Follow-up: 10-[address] Narvaez You may take off the leg compression stockings this evening at home. You may also leave them on a few days longer if you have a history of leg swelling or edema. Let us know right away if you develop any redness, drainage, fevers, chest pain, or trouble breathing. Do not drink alcohol or drive for at least 24 hours after anesthesia. Please call the office during business hours with any questions or concerns. Discharge Orders Discharge Orders: Discharge Order (Routine); Ordered 07/23/22 Ordered By: Miguel Narvaez DS: Diagnosis Discharge Diagnosis (1) Traumatic tear of right rotator cuff: Status: Acute
== END 2022-07-23 10:15 | disposition home or self-care (01) ==
LOC: SUR 10:15
PROVIDERS: PCP Internal Medicine; Visit Provider Student in an Organized Health Care Education/Training Program
DX: S46.011S Strain of muscle(s) and tendon(s) of the rotator cuff of right shoulder, sequela (principal); Z53.8 Procedure and treatment not carried out for other reasons
CPT/HCPCS: J1100; J1885; J2250; J2405; J2704

== ENCOUNTER 2022-08-13 06:26 | Day surgery (SDC) | payer MEDICARE, BC, SELFPAY ==
[2022-08-13] VITALS (10 sets, daily range): BP systolic 86–140; BP diastolic 59–89; PULSE 52–63; RESP 12–18; TEMP 36.1–36.6; O2SAT 92–98; BMI 27.8
--- NOTE | 2022-08-13 06:35 | W.ANESPRE ---
General Info Date of Service Date Performed: 08/13/22 Height: 5 ft 11 in Weight: 90.718 kg Body Mass Index (BMI): 27.8 Surgical Procedure: Operation Date: 08/13/22 07:40 Proposed Procedure Side Surgeon p Shoulder Revision Rotator Cuff Arthroscopic w/Extensive Debridement,Subacromial Decompression and Allograft Superior Capsular Reconstruction Right Miguel Narvaez MD Meds Allergies and Home Medications Allergies Allergy/AdvReac Type Severity Reaction Status Date / Time amoxicillin Allergy as a young Verified 08/13/22 06:43 adult-see comment lisinopril AdvReac Intermediate lightheaded Verified 08/13/22 06:43 ness Home Medication Medication Instructions Recorded diltiazem HCl 120 mg 120 mg PO DAILY 09/25/18 capsule,extended release 24 hr, controlled gabapentin 300 mg capsule 300 mg PO QHS 04/15/20 rosuvastatin 5 mg tablet 5 mg PO DAILY 07/07/20 acetaminophen 500 mg capsule 1,000 mg PO Q8H PRN PRN #90 caps 11/25/20 acetaminophen 500 mg tablet 500 mg PO Q6H PRN #30 tabs 02/03/21 (Tylenol Extra Strength) chlorthalidone 15 mg tablet 15 mg PO DAILY 05/13/22 aspirin 81 mg tablet,delayed 81 mg PO DAILY prevent blood clot 08/12/22 release 7 days #7 tabs meloxicam 15 mg tablet 1 tab PO DAILY 08/12/22 naproxen 250 mg tablet 250 - 500 mg PO BID PRN #40 tabs 08/12/22 oxycodone 5 mg tablet 5 - 10 mg PO Q4H PRN moderate to 08/12/22 severe pain #18 tabs acetaminophen 650 mg 1,300 mg PO Q12H 08/13/22 tablet,extended release Current Visit Medications: Current Medications Generic Name Dose Route Start Last Admin Trade Name Freq PRN Reason Stop Dose Admin Ringer's Solution 1,000 mls @ 30 mls/hr 08/13/22 06:00 IV 08/13/22 18:00 INFUSION AKHIL Cefazolin Sodium/Dextrose 2 gm in 50 mls @ 100 mls/hr 08/13/22 06:00 Ancef Duplex IVPB 08/13/22 23:59 PREOP AKHIL IV Miscellaneous Supplies 1 each 08/13/22 06:00 Iv Access IV 08/13/22 23:59 DIRECTED AKHIL Sodium Chloride 0 ml 08/13/22 06:00 Normal Saline Flush 10 Ml Syr IV 08/13/22 23:59 PRN PRN Sodium Chloride 0 ml 08/13/22 06:00 Normal Saline 10 Ml Vial IJ 08/13/22 23:59 DIRECTED PRN Sterile Water 0 ml 08/13/22 06:00 Water,Injection,Sterile 10 Ml Vial IJ 08/13/22 23:59 DIRECTED PRN PFSH Active Problems Active Problems: Problem Status Onset Code Contusion of left wrist S60.212A Left knee pain M25.562 Strain of left quadriceps muscle, fascia and tendon, initial encounter S76.112A Internal derangement of left knee M23.92 Status post arthroscopy of left knee 11/25/20 Z98.890 Traumatic tear of right rotator cuff S46.011A Ganglion cyst of tendon sheath of right hand M67.441 Right trigger finger M65.30 Right carpal tunnel syndrome G56.01 Left carpal tunnel syndrome G56.02 Medical History Medical History Hyperlipemia Hypertension Rupture of right proximal biceps tendon Spinal stenosis Surgical History Surgical History (Updated 08/13/22 @ 06:47 by Tori Galvan) History of back surgery Hx of colonoscopy Hx of rhinoplasty S/P rotator cuff repair Tobacco Smoking/Tobacco Use Status: Former Tobacco Use Alcohol Alcohol Intake: current Alcohol intake frequency: a few times a week Alcohol type: hard liquor Substance Use Substance use: Never Substance use type: does not use Vital Signs and Lab Results Vital Signs Comment Vital Signs Comment:: Temp Pulse Resp BP Pulse Ox 36.6 C 63 18 140/89 97 08/13/22 06:49 08/13/22 06:49 08/13/22 06:49 08/13/22 06:49 08/13/22 06:49 Lab Results Blood Type / Crossmatch: No Data to Display Complete Blood Count: No Data to Display Complete Metabolic Panel: No Data to Display Liver Function Panel: No Data to Display Coagulation Panel: No Data to Display Cardiac Panel: No Data to Display Arterial Blood Gas: No Data to Display Venous Blood Gas: No Data to Display Pancreas Panel: No Data to Display Thyroid Panel: No Data to Display Infectious Disease: No Data to Display Blood Cultures: No Data to Display Toxicology Panel: No Data to Display Anesthesia Assessment and Plan Anesthesia History Personal History: No History of Anesthesia Complications Family History: No Family History of Anesthesia Complications Exercise Tolerance Exercise Tolerance: Metabolic Equivalents>4 Pertinent Negatives Pertinent Negatives: No Symptoms of GERD and No Major Pulmonary Symptoms or Complaints Cardiac & Pulmonary Exam Cardiac Exam: Normal S1/S2 Heart Sounds Pulmonary Exam: Clear Bilateral Breath Sounds Implantable Cardiac Device Does patient have a Pacemaker or an ICD?: No Airway Exam Known Difficult Airway: No Mallampati Class: 1 Mouth Opening: Normal (> 3cm) Thyromental Distance: Greater than 3 cm Neck Range of Motion: Full ROM Neck Circumference: Normal Teeth Condition: Normal Dentition ASA Classification ASA Score: ASA 2 Emergency Case?: No NPO Status NPO Status: NPO Clears >2 hours, Solids >8 hours Anesthesia Plan Resuscitation Status: Full Code Anesthesia Technique: General Anesthesia Airway Planned: Endotracheal Tube Pain Management: Surgeon and patient request nerve block Monitors Used: Standard Monitors
[2022-08-13] MEDS: Lactated Ringers 1,000 ML 30 ML IV (07:00)
[2022-08-13] MEDS: ceFAZolin 2 GM/50 ML BAG IVPB (08:05)
[2022-08-13] MEDS: Bupivacaine 0.5% Pres-Free W/EPI 30 ML VIAL (08:23)
--- NOTE | 2022-08-13 08:36 | W.ANESNERVE ---
Nerve Block Single Injection Procedure Date and Time Date Performed: 08/13/22 Procedure Start: 07:25 Location Where Procedure Performed Procedure Location: Day Surgery Unit Reason Performed: Postoperative Analgesia Requesting Provider: Miguel Narvaez Timeout Performed Timeout Performed: Yes Monitoring Used ECG, Blood Pressure, SpO2 and See EMR for corresponding vital signs Sterility Sterility: Hand Hygiene, Surgical Cap, Surgical Mask, Sterile Gloves, Eye Protection and Chlorhexidine Sedation Given During Procedure Sedation Given (Indicate Dose Given): Versed IV Dose:: 2mg Patient Mental Status Patient Mental Status: Sedate with meaningful communication Nerve Block 1st Nerve Block: Laterality: Right Block Type: Interscalene Ultrasound Image Saved?: Yes Needle / Catheter Used: 80mm SonoPlex II Local Anesthetic Bolus (Indicate Dose Given): Lidocaine used for local infiltration of skin, Injected in 3-5ml increments after negative blood aspiration, Bupivacaine 0.5% Dose:: 10 mL and Exparel Dose:: 10 mL Additives (Indicate Dose Given): None Ultrasound: Sterile probe cover and gel used Nerve Stimulator: Not Used Paresthesia: None Procedure Tolerated: No Complications Procedure Outcome: Successful Procedure Comment: Negative color doppler. Performed By: Keely Sheffield
[2022-08-13] MEDS: EPINEPHrine 30 MG/30 ML VIAL (10:12)
--- NOTE | 2022-08-13 12:17 | W.PM.DSUDISC ---
Date of service: 08/13/22 Time of Service: 14:00 Discharge Plan Disposition Patient Disposition: Home Discharge Details Attending Provider: Miguel Narvaez Primary Care Provider: Rony Treviño Home Meds and New Rx's Prescriptions: New naproxen 250 mg tablet 250 - 500 mg PO BID PRNQty: 40 0RF Rx Instructions: take with a meal aspirin 81 mg tablet,delayed release (DR/EC) 81 mg PO DAILY 7 Days Qty: 7 0RF oxycodone 5 mg tablet 5 - 10 mg PO Q4H MDD 30 mg PRN (Reason: moderate to severe pain) Qty: 18 0RF Continued chlorthalidone 15 mg tablet 15 mg PO DAILY gabapentin 300 mg capsule 300 mg PO QHS diltiazem HCl 120 mg Capsule,Ext.Rel 24h Degradable 120 mg PO DAILY acetaminophen 500 mg capsule 1,000 mg PO Q8H PRN PRNQty: 90 0RF meloxicam 15 mg tablet 1 tab PO DAILY Label Comments: TAKE ONE TABLET BY MOUTH EVERY DAY acetaminophen 650 mg Tablet Extended Release 1,300 mg PO Q12H rosuvastatin 5 mg tablet 5 mg PO DAILY Label Comments: TAKE ONE TABLET BY MOUTH ONCE DAILY acetaminophen [Tylenol Extra Strength] 500 mg tablet 500 mg PO Q6H PRNQty: 30 0RF Discontinued naproxen sodium 220 mg Tablet 440 mg PO BID PRN Discharge Instructions Additional Instructions: Surgery: Right shoulder arthroscopy with allograft superior capsular reconstruction, revision rotator cuff repair, extensive debridement, and subacromial decompression. Activity: For 6 weeks, you should keep your arm at your side in a neutral position at all times except for physical therapy. Do not try to lift or raise your arm using your own muscles. You should use the sling whenever you are out of the house. You may have to adjust the abduction pillow or remove it for comfort. At home it is best to remove the sling and rest the arm on a pillow at your side or support the operative side with your other hand. You may allow the arm to dangle at your side. A physical therapy prescription will be sent electronically to begin in about 3 weeks. CONSERVATIVE protocol. Prescriptions: Aspirin 81 mg take 1 daily to prevent a blood clot for 7 days Naproxen 250 mg take 1-2 every 12 hours with a meal as needed for moderate pain Oxycodone 5 mg take 1-2 every 4-6 hours as needed for severe pain You may use [id number] Tylenol (acetaminophen) as needed for mild pain. These pain medications may be taken all at once or in different combinations as needed. Also, recommend Colace (docusate) as a stool softener as surgery and pain medicine cause constipation. You may try bqnu-fma-fjqnkep diphenhydramine (Benadryl) 25-50 mg nightly as a sleep aid Dressings: Remove shoulder bandage after 3 days. Leave the sticky Steri-Strips in place until they fall off or remove them after you shower. Cover the incisions with Band-Aids or leave them open to air. You may shower after 5 days. Follow-up: 10-[address] Narvaez You may take off the leg compression stockings this evening at home. You may also leave them on a few days longer if you have a history of leg swelling or edema. Let us know right away if you develop any redness, drainage, fevers, chest pain, or trouble breathing. Do not drink alcohol or drive for at least 24 hours after anesthesia. Please call the office during business hours with any questions or concerns. Discharge Orders Discharge Orders: Discharge Order (Routine); Ordered 08/13/22 Ordered By: Miguel Narvaez DS: Diagnosis Discharge Diagnosis (1) Traumatic tear of right rotator cuff: Status: Acute
--- NOTE | 2022-08-13 12:30 | ROE_ITS ---
Date of service: 08/13/22 Time of Service: 07:30 Operative Note Operative Note DATE OF PROCEDURE: 08/13/22 PRE-OP DIAGNOSIS: Right: 1. Revision rotator cuff tear 2. Superior proximal humerus migration instability 3. Bursitis POST-OP DIAGNOSIS: same PROCEDURE: Right: 1. Revision rotator cuff repair, CPT# 14080. This involved repair of the far posterior infraspinatus and teres minor to the capsular reconstruction and greater tuberosity using suture and suture anchor. 2. Arthroscopic superior capsular reconstruction, CPT #52852: This involved dermal allograft reconstruction of deficient superior capsule to maintain glenohumeral stability and prevent superior humeral migration. 3. Extensive debridement, CPT# 88118. This involved using arthroscopic hand instruments, power instruments, and radiofrequency instruments to debride fairly global areas of prior scarring, adhesions, chondromalacia about the superior humeral head, irregularities about the greater tuberosity, remove all prior retained permanent suture material, and smooth the prominent greater tuberosity as a tuberoplasty to improve the acromiohumeral distance. 4. Subacromial decompression, CPT# 65704. This involved using arthroscopic power instruments and a radiofrequency wand to complete a bursectomy removing abundant inflamed scar tissue and adhesions from the subacromial space. The speech and language assistant was medically required in order to help assist in techniques above, which require positioning the arm, holding the arthroscope, and manipulating multiple instruments and sutures at the same time. This cannot be done without the help of an experienced speech and language assistant. SURGEON: Miguel Narvaez HOME OFFICE REPRESENTATIVE: Selena Jj ANESTHESIA TYPE: Local By Surgeon, General LMA/ETT and Primary Nerve Block Refer to Anesthesia Record ESTIMATED BLOOD LOSS: 10 PATHOLOGY: none sent COMPLICATIONS: None Patient was transported to: PACU Patient's condition: stable Implants: Arthrex: 4.75mm SwiveLocks x 4, 3.9mm Corkscrews x2 Indications: The patient was diagnosed with the above conditions and appropriately indicated for surgical intervention. Please see complete medical record for details. Findings: Exam under anesthesia: Full range of motion, no anterior posterior instability Glenohumeral joint: Moderate central humeral head chondromalacia with more significantly deep cartilage loss and changes superiorly. Apparent medialized greater tuberosity prior rotator cuff repair footprint. Prior biceps rupture. Intact subscapularis with loose anterior suture easily removed from retained suture anchor. Completely deficient posterior rotator cuff. Subacromial space: Significant scarring and prior adhesions anteriorly centrally laterally and posteriorly. Remnant lateral infraspinatus on greater tuberosity. Fairly balled void greater tuberosity centrally. Speed bridge knotted configuration sutures across greater tuberosity with no real soft tissue underneath. Medialized prior medial row with fairly prominent greater tuberosity much more laterally and obvious narrowing and impingement on the undersurface acromion. Far posteriorly at about the equator intact probably teres minor with some partial small amount of infraspinatus still present. Procedure Description: In the operating room, general anesthesia was induced. Bilateral shoulders were examined. The patient was positioned in the beachchair position. All bony prominences were well-padded. Preoperative antibiotics were administered. The shoulder was prepped and draped in the usual sterile fashion. The correct patient, procedure, and side of the procedure were all verified prior to incision. Starting through the posterior portal a standard complete diagnostic arthroscopy was performed of the glenohumeral joint including inspection of the long head of the biceps, anterior and superior labrum, subscapularis tendon, supraspinatus and infraspinatus tendons, and axillary recess. The glenoid and humeral head cartilage as well as the posterior labrum were inspected from an anterior viewing portal. Significant findings and interventions noted above. Prior retained sutures were easily removed and although the patient had no pre- existing shoulder pain prior to this injury, they were sent as specimens to rule out indolent c.acnes infection. Significant time was spent debriding the glenohumeral joint and subacromial s pace using various mechanical elevators, mechanical shaver, and radiofrequency wand to reestablish superior glenohumeral joint and subacromial space as best possible. The subscapularis did not require any revision repair. The greater tuberosity bony prominence was smooth and minimized to prevent impingement on the acromion as a tuboplasty. The remainder of the greater tuberosity was abraded to optimize bone tissue healing. There is essentially no rotator cuff superiorly or posterior superiorly for any attempted repair. The superior aspect of the glenoid was debrided to visualize glenoid anchor placement including exposure of the base of the coracoid and posterior superiorly. The far posterior rotator cuff was inspected and found to have reasonable tissue quality excursion for repair, which included prior teres minor and small amount of the infraspinatus. Through anterior and Nevisier percutaneous portals spinal needles followed by drill guide was used to place 2 glenoid knotless corkscrew anchors. Next, the medial greater tuberosity row suture anchors were placed with a posterior one being knotless. They are placed at about the physiologic greater tuberosity medial margin a few millimeters off the medial eyes prior footprint. The SCR measuring guide was then used to establish dimensions of the graft, which was prepared on the back table. The FiberTape's were then passed through the graft appropriately held over the lateral arm. Sequentially the anterior knotless corkscrew repair suture was brought out shelled through the graft using the scorpion and horizontal mattress fashion and then passed back through the anchor using the knotless mechanism. This was repeated for the posterior superior corkscrew anchor. Carefully maintaining suture and graft orientation, the back grasper was used to deliver the graft through the lateral 12 mm passport portal. The graft deployed nicely and was carefully tensioned under direct visualization to the glenoid. The graft was then provisionally laid over the greater tuberosity sliding the FiberTape retriever over the tapes. The knotless mechanism was pulled out a separate portal. The fiber tapes were retrieved out anterior superior and posterior superior lateral portals. A single FiberTape from each medial row anchor was then brought out in the arm position to optimize lateral row placement for an anterior anchor. This was repeated with the remaining FiberTape for a posterior lateral row anchor. The undersized punch had been used for all greater tuberosity anchors given the prior medial lateral row anchors present, soft bone from probably acute on chronic rotator cuff repair, and all the anchors had good screw purchase fixation. The SCR graft was inspected had excellent coverage across the majority of the greater tuberosity from anterior at about the bicipital groove all the way posterior with a small gap between it and the remnant rotator cuff. Final tension was done on the glenoid side. Lastly, the self retrieving suture passer was used to shuttle a #2 FiberWire in a simple cytocide repair configuration between the posterior border of the reconstruction and the far posterior rotator cuff and secured with SMC arthroscopic knot. Lastly, the knotless mechanism with a posterior medial row anchor was shuttled in a simple configuration through the far posterior rotator cuff laterally and tensioned appropriately. There was excellent reapproximation cytocide repair between the rotator cuff and the graft and posterior greater tuberosity. No additional repair was needed anteriorly. The interval anteriorly between the graft and the subscapularis was left open to prevent stiffness. The shoulder was drained of arthroscopic fluid. All portal sites were copiously irrigated. These incisions were closed using 3-0 Monocryl in a buried fashion and then covered with Mastisol, Steri-Strips, Xeroform, dry gauze, and ABDs. The dressings were covered and secured with Medipore tape. The operative extremity was placed into a sling for immobilization. The patient awoke from anesthesia without complication and was transferred to the recovery room in a stable condition.
--- NOTE | 2022-08-13 12:55 | W.ANESPOSTOP ---
Postoperative Evaluation Date, Time and Location Date Performed: 08/13/22 Time Performed: 12:55 Patient Location: Day Surgery Unit Vital Signs Most Recent Imported Vital Signs: Most Recent Vital Signs Temp Pulse Resp BP Pulse Ox 36.4 C L 53 L 18 122/79 93 08/13/22 12:25 08/13/22 12:25 08/13/22 12:25 08/13/22 12:25 08/13/22 12:25 Pain Score Most Recent Pain Score: Most Recent Pain Score Pain Level 5 08/13/22 12:25 Assessment Mental Status: Awake (Alert & Oriented to Patient Baseline) Airway and Respiratory Function: Patent airway with normal (patient baseline) respiratory exam Cardiovascular Function: Hemodynamically Stable Hydration Status: Adequately Hydrated Nausea & Vomiting: No Nausea or Vomiting Pain: Pain is Moderate or Severe Postoperative Pain Management: Pain being addressed with medication (Patient's right arm is heavy, able to move fingers, but reports medical chest wall discomfort and reports as pressure) Peripheral Nerve Block: Regional nerve block not resolved at time of post operative discharge Postoperative Comments:: at bedside, discussed nerve block and importance of reviewing discharge instructions
[2022-08-13] MEDS: oxyCODONE 5 MG TAB PO (13:09)
== END 2022-08-13 14:09 | disposition home or self-care (01) ==
PROVIDERS: PCP Internal Medicine; Visit Provider Student in an Organized Health Care Education/Training Program
PROC: (CPT 29827; principal; 2022-08-13 07:30)
DX: M75.51 Bursitis of right shoulder (principal); M25.311 Other instability, right shoulder; M75.101 Unspecified rotator cuff tear or rupture of right shoulder, not specified as traumatic
CPT/HCPCS: 29806; 29827; 29826; 29823; 87070; 87075; 87205; J0131; J0690; J1100; J1885; J2250; J2370; J2405; J2704

== ENCOUNTER → 2022-08-25 09:16 | Outpatient (BNVA) | payer MEDICARE, BC, SELFPAY | PROVIDERS: PCP Internal Medicine; Referring Provider Internal Medicine; Visit Provider Student in an Organized Health Care Education/Training Program | DX: Z47.89 Encounter for other orthopedic aftercare (principal) ==

== ENCOUNTER → 2022-10-12 08:00 | Outpatient (BNVA) | payer MEDICARE, BC, SELFPAY | PROVIDERS: PCP Internal Medicine; Referring Provider Internal Medicine; Visit Provider Student in an Organized Health Care Education/Training Program | DX: Z47.89 Encounter for other orthopedic aftercare (principal); R29.898 Other symptoms and signs involving the musculoskeletal system ==

== ENCOUNTER → 2022-12-01 07:58 | Outpatient (BNVA) | payer MEDICARE, BC, SELFPAY | PROVIDERS: PCP Internal Medicine; Referring Provider Internal Medicine; Visit Provider Student in an Organized Health Care Education/Training Program | DX: S46.011D Strain of muscle(s) and tendon(s) of the rotator cuff of right shoulder, subsequent encounter (principal); X58.XXXD Exposure to other specified factors, subsequent encounter | CPT/HCPCS: 99213 ==

== ENCOUNTER 2023-04-07 09:15 | Emergency (ER) | payer MEDICARE, BC, SELFPAY ==
[2023-04-07 09:19] VITALS: BP 124/91; PULSE 62; RESP 18; TEMP 36.7; O2SAT 97
--- NOTE | 2023-04-07 09:30 | DI.RAD_ITS ---
Exam(s) XR CHEST 2V PA LATERAL EXAM: XR CHEST 2V PA LATERAL CLINICAL HISTORY: nail to anterior chest, 7ft fall yesterday, pain. TECHNIQUE: 2D digital imaging was performed. COMPARISON: No exams were available for comparison FINDINGS: 2 views: Heart size is normal. The mediastinum is not widened. There is elevation left hemidiaphragm and atelectasis in left lung base. Right lung is clear. No ob vious pleural effusions. No obvious lung nodules evident. IMPRESSION: Elevated left hemidiaphragm and platelike atelectasis or scarring in the left lung base. There are n o previous chest x-rays for comparison. DATA REPOSITORY: RADIATION DOSE DELIVERED:
--- NOTE | 2023-04-07 09:30 | DI.RAD_ITS ---
Exam(s) XR TIB/FIB LT EXAM: XR TIB/FIB LT CLINICAL HISTORY: swelling, fall yesterday 7 ft. TECHNIQUE: 2D digital imaging was performed. COMPARISON: CR XR CHEST 2V PA LATERAL from 04/07/2023 FINDINGS: 3 views No evidence of acute fracture of the tibia and fibula nor widening of the ankle mortise. There is ai r in the soft tissues on the upper medial aspect of the calf and extending above the level the field of view of this study. Probably related to puncture wound or laceration given the recent trauma hist ory here. No radiopaque foreign body evident in the field of view of this study.. Vascular calcific ations noted in the distal calf. IMPRESSION: Findings as above in the soft tissues which extend above the level of the field of view. No osseous findings in the tibia and fibula. DATA REPOSITORY: RADIATION DOSE DELIVERED:
--- NOTE | 2023-04-07 10:19 | DI.CT_ITS ---
Exam(s) CT CERVICAL SPINE WO EXAM: CT CERVICAL SPINE WO CLINICAL HISTORY: fall from 7ft to ground yesterday, pain. TECHNIQUE: Imaging Protocol: Axial computed tomography images with coronal and sagittal reformatted images were created and reviewed COMPARISON: No exams were available for comparison FINDINGS: CERVICAL SPINE: There is no evidence of acute fracture. No significant prevertebral soft tissue swelling. No significant listhesis. There is multilevel chronic degenerative disc disease and multilevel facet arthropathy evident. Facet arthropathy evident but no significant facet joint malalignment. No significant osseous lesions evident. IMPRESSION: Advanced multilevel degenerative changes. No evidence of cervical spine fracture, malalignment, nor acute compromise of the cervical spinal can al. Called by myself to ER. RADIATION DOSE DELIVERED: 543.09mGy.cm Total DLP DATA REPOSITORY: All CT scans at this facility are submitted to the National Radiology Data Registry (NRDR) Dose Index Registry (DIR) with the [employer] ([employer]). RADIATION OPTIMIZATION: All CT scans at this facility use at least one of these dose optimization te chniques: automated exposure control; mA and/or kV adjustment per patient size (includes targeted exa ms where dose is matched to clinical indication); or iterative reconstruction.
--- NOTE | 2023-04-07 10:25 | W.ED.GENAD ---
Discharge Plan Disposition Patient Disposition: Home Condition: Stable Discharge Details Clinical Impression: Fall, Hematoma of left lower leg, Acute strain of neck muscle, Puncture wound of chest Primary Care Provider: Rony Treviño ED Provider: Vicente Gilliland Home Meds and New Rx's Prescriptions: New cephalexin 500 mg capsule 500 mg PO TID Qty: 14 0RF Continued chlorthalidone 15 mg tablet 15 mg PO DAILY gabapentin 300 mg capsule 300 mg PO QHS meloxicam 15 mg tablet See Rx Instructions .ROUTE .COMPLEX Qty: 30 0RF Dose Instruction: TAKE ONE TABLET BY MOUTH ONCE DAILY Rx Instructions: TAKE ONE TABLET BY MOUTH ONCE DAILY diltiazem HCl 120 mg Capsule,Ext.Rel 24h Degradable 120 mg PO DAILY naproxen 250 mg tablet 250 - 500 mg PO BID PRNQty: 40 0RF Rx Instructions: take with a meal rosuvastatin 5 mg tablet 5 mg PO DAILY Patient Comments: TAKE ONE TABLET BY MOUTH ONCE DAILY acetaminophen [Tylenol Extra Strength] 500 mg tablet 500 mg PO Q6H PRNQty: 30 0RF Discharge Instructions Instructions: Cervical Strain (ED), Puncture Wound (ED), Hematoma (ED) Additional Instructions: Please contact your primary care physician to arrange follow-up. Please follow-up early next week for recheck of chest wound. Please take antibiotic as prescribed for prophylaxis. Please follow-up with orthopedics next week. Please ice your leg and keep it elevated is much as possible. Do not apply ice directly to the skin -- use a fabric barrier. Wiggle your foot and ankle frequently to encourage circulation. Return to the ER immediately for any worsening or new concerning symptoms. Referrals: Miguel Narvaez MD [ [facility] STAFF PHYSICIAN] - Rony Treviño [Primary Care Provider] - Medical Decision Making 1000?- 68-year-old male presents after fall from 6 foot scaffolding with injury to his left leg as well as puncture wound to his chest and neck discomfort with rotation. Patient has no headache and is mentating well. Patient is hemodynamically stable. I am concerned that he has diminished breath sounds on auscultation of his left lung. Concern for acute pneumothorax. Plan to obtain chest x-ray. Left leg is swollen and tense in his calf or I suspect he has a hematoma. He is able to flex and extend at his ankle and distal pulses and sensation are intact. Am concerned with potential to progression to compartment syndrome. I will discuss with orthopedics. Consider cervical spine fracture will obtain CT of the cervical spine. 1034 -- Chest x-ray was reviewed and interpreted by radiology: IMPRESSION: Elevated left hemidiaphragm and platelike atelectasis or scarring in the left lung base. There are no previous chest x-rays for comparison. Left tib-fib was reviewed and interpreted by radiology: No evidence of acute fracture of the tibia and fibula nor widening of the ankle mortise. There is air in the soft tissues on the upper medial aspect of the calf and extending above the level the field of view of this study. Probably related to puncture wound or laceration given the recent trauma history here. No radiopaque foreign body evident in the field of view of this study.. Vascular calcifications noted in the distal calf. 1209 --patient was seen by Dr. Narvaez in the emergency department. He recommends discharge with ice, elevation, and follow-up next week in clinic. Discussed antibiotic prophylaxis with the patient and he provided informed consent for treatment with cephalexin. HPI General Mode of arrival: ambulatory. Date/Time Provider Initiated Documentation: 04/07/23 09:21. Limitations to Documentation: no limitations. Information obtained by: patient. HPI Narrative: 68-year-old male presents with chief complaint of left leg pain. Patient notes he was on a 6 to 7 foot high scaffolding, caught his left leg in the scaffolding and fell to the ground. It seems like he may have twisted his leg in the scaffolding as he fell. He notes when he landed a nail that was stuck in a board went into his left chest. He did hit his head lightly. He does not believe he lost consciousness. He has no headache. No confusion. Patient notes he got up and continue to work after the fall. Patient here today because his left leg is more swollen and tense. He has no associated shortness of breath or abdominal pain. Related Data Home Medications Medication Instructions Recorded Confirmed diltiazem HCl 120 mg 120 mg PO DAILY 09/25/18 04/07/23 capsule,extended release 24 hr, controlled gabapentin 300 mg capsule 300 mg PO QHS 04/15/20 04/07/23 rosuvastatin 5 mg tablet 5 mg PO DAILY 07/07/20 04/07/23 acetaminophen 500 mg tablet 500 mg PO Q6H PRN #30 tabs 02/03/21 04/07/23 (Tylenol Extra Strength) chlorthalidone 15 mg tablet 15 mg PO DAILY 05/13/22 04/07/23 naproxen 250 mg tablet 250 - 500 mg PO BID PRN #40 tabs 08/12/22 04/07/23 meloxicam 15 mg tablet See Rx Instructions .Route 01/04/23 04/07/23 .COMPLEX #30 tabs cephalexin 500 mg capsule 500 mg PO TID #14 caps 04/07/23 Previous Rx's Medication Instructions Recorded acetaminophen 500 mg tablet 500 mg PO Q6H PRN #30 tabs 02/03/21 (Tylenol Extra Strength) naproxen 250 mg tablet 250 - 500 mg PO BID PRN #40 tabs 08/12/22 meloxicam 15 mg tablet See Rx Instructions .Route 01/04/23 .COMPLEX #30 tabs cephalexin 500 mg capsule 500 mg PO TID #14 caps 04/07/23 Allergies Allergy/AdvReac Type Severity Reaction Status Date / Time amoxicillin Allergy as a young Verified 04/07/23 09:51 adult-see comment lisinopril AdvReac Intermediate lightheaded Verified 04/07/23 09:51 ness General Stated Complaint: Fall/Non TraumaCriteria GENNARO: 3 PFSH All Active Problems (Updated 04/07/23 @ 12:00 by Vicente Gilliland MD) Fall (Acute) Hematoma of left lower leg (Acute) Acute strain of neck muscle (Acute) Puncture wound of chest (Acute) Left carpal tunnel syndrome (Acute) s/p ECTR 04/30/2020 Right carpal tunnel syndrome (Acute) s/p ECTR DOS: 02/03/2021 Right trigger finger (Acute) Ganglion cyst of tendon sheath of right hand (Acute) Left knee pain (Acute) Strain of left quadriceps muscle, fascia and tendon, initial encounter (Acute) Internal derangement of left knee (Acute) Injection: 02/03/2021; 07/09/20 Traumatic tear of right rotator cuff (Acute) status post right shoulder arthroscopy with rotator cuff repair and biceps tenodesis: 07/09/2020 SCR with revision RTC repair 08/13/2022 Status post arthroscopy of left knee (Acute 11/25/20) s/p left knee arthroscopy with arthroscopic debridement, partial lateral and medial menisectomies and removal of loose bodies Contusion of left wrist (Acute) Medical History Hyperlipemia Hypertension Rupture of right proximal biceps tendon Spinal stenosis Surgical History History of back surgery Hx of colonoscopy Hx of rhinoplasty S/P rotator cuff repair Social History Smoking/Tobacco Use Status: Former Tobacco Use Quit Date: 08/01/69 Smoking risk assessment performed?: Yes Alcohol Intake: current Alcohol Intake frequency: a few times a week Alcohol type: hard liquor Drug use: Never Substance use type: does not use Housing: house 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 Current gender identity: male Do you feel safe at home: Yes Do you feel safe in your relationship?: Yes Exam Const General: cooperative and no acute distress HENMT Mouth: moist mucous membranes Eyes Conjunctivae: normal conjunctivae Sclera: normal sclerae Chest Other: Puncture wound left parasternal Resp Auscultation: clear to auscultation bilaterally, no rales, no rhonchi and no wheezes Cardio Rate: regular rate and not tachycardic Rhythm: regular rhythm GI Palpation: soft, not firm, no guarding, no masses, not rigid and nontender Back/Spine/Pelvis Cervical Spine: No cervical spinal tenderness, No step off deformity and other (Pain with rotation of his neck) Thoracic/Lumbar Spine: No thoracic spinal tenderness and No lumbar spinal tenderness Skin General skin exam: no rashes or lesions noted Neuro General: patient alert, patient awake, patient oriented x3 and tone normal Extrem General: no edema Left lower extremity: lower leg (Swelling and ecchymosis of the calf, skin is tense, tender to palpation), ankle Details: normal ROM and foot Details: vascular exam Details: dorsalis pedis pulse present (2+) and motor-sensory exam Details: light-touch normal Psych Appearance: grossly normal Mental Status: mental status grossly normal Course Vital Signs Vital signs: Vital Signs Temperature 36.7 C 04/07/23 09:19 Pulse 62 04/07/23 09:19 Respiratory Rate 18 04/07/23 09:19 Blood Pressure 124/91 H 04/07/23 09:19 Pulse Oximetry 97 04/07/23 09:19 Temperature 36.7 C 04/07/23 09:19 Temperature Source Oral 04/07/23 09:19 Pulse 62 04/07/23 09:19 Respiratory Rate 18 04/07/23 09:19 Respiratory Effort Normal, Non-Labored 04/07/23 09:26 Blood Pressure 124/91 H 04/07/23 09:19 Blood Pressure Position Sitting 04/07/23 09:19 Pulse Oximetry 97 04/07/23 09:19 Oxygen Delivery Method Room Air 04/07/23 09:19 Oxygen Flow Rate 0 04/07/23 09:19
--- NOTE | 2023-04-07 11:54 | W.ORTHOCONSU ---
Date of service: 04/07/23 Time of Service: 11:30 Assessment and Plan Assessment and plan (1) Hematoma of left lower leg: Status: Acute Assessment and plan: 68-year-old male with left medial proximal calf and distal medial thigh hematomas Patient with awkward fall contusion and twist leg injury about 6 feet yesterday, was able to continue working, presented to the emergency department this morning. I was called to evaluate the extremity for potential compartment syndrome while in surgery. Abbreviated history and exam done due to time constraints. See the remainder of the emergency department notes for neck sprain and chest nail injuries. Left tib-fib x-rays show no fracture, radiology report describes air which I see is potentially a fluid or hematoma outlined in the proximal medial leg. No true subcutaneous edema or deeper air or gas. No puncture injuries wounds lacerations to the left thigh knee or leg. The patient was completely closed with an resting comfortably in the extra waiting room emergency department exam room. He was completely comfortable at rest. Absolutely no acute distress. Left lower extremity had a small to medium relatively soft hematoma on the proximal medial calf as well as a smaller softer hematoma on the distal medial thigh. All thigh and leg compartments were completely soft. Patient readily demonstrated full and surprisingly painless range of motion about the knee foot and ankle. Absolutely no pain with passive stretch of the posterior leg gastrocsoleus musculature. Minimal tenderness not unexpected directly at the hematoma site. Hematoma and surrounding areas without any crepitation or popcorn-like feeling that would indicate subcutaneous air or gas or Rose Bret type lesion. Knee grossly uninjured, but did not have time to complete knee stability exam or more proximal exam with patient having pants on. Reviewed with patient, his partner, and emergency room doctor that there does not appear to be any compartment syndrome or impending compartment syndrome at all. Patient is not on blood thinners either. Recommend rest, ice, and elevation. Gradually increase activities. Observe hematoma for any signs of a problem like infection. Reviewed signs and symptoms of compartment syndrome, which seems unlikely to occur at this point from injury that was not overly high-energy. X-rays without any bony fracture. May follow-up with orthopedics outpatient as needed. Potential medial calf muscle injury. Would also observe the knee for any knee ligament or meniscus injury given potential twisting mechanism. Of note, did not injure his right shoulder, which had arthroscopic allograft superior capsular reconstruction and revision rotator cuff repair 8 months ago. PFSH All Active Problems (Updated 04/07/23 @ 12:00 by Vicente Gilliland MD) Fall (Acute) Hematoma of left lower leg (Acute) Acute strain of neck muscle (Acute) Puncture wound of chest (Acute) Left carpal tunnel syndrome (Acute) s/p ECTR 04/30/2020 Right carpal tunnel syndrome (Acute) s/p ECTR DOS: 02/03/2021 Right trigger finger (Acute) Ganglion cyst of tendon sheath of right hand (Acute) Left knee pain (Acute) Strain of left quadriceps muscle, fascia and tendon, initial encounter (Acute) Internal derangement of left knee (Acute) Injection: 02/03/2021; 07/09/20 Traumatic tear of right rotator cuff (Acute) status post right shoulder arthroscopy with rotator cuff repair and biceps tenodesis: 07/09/2020 SCR with revision RTC repair 08/13/2022 Status post arthroscopy of left knee (Acute 11/25/20) s/p left knee arthroscopy with arthroscopic debridement, partial lateral and medial menisectomies and removal of loose bodies Contusion of left wrist (Acute) Medical History Hyperlipemia Hypertension Rupture of right proximal biceps tendon Spinal stenosis Surgical History History of back surgery Hx of colonoscopy Hx of rhinoplasty S/P rotator cuff repair Social History Smoking/Tobacco Use Status: Former Tobacco Use Quit Date: 08/01/69 Smoking risk assessment performed?: Yes Alcohol Intake: current Alcohol Intake frequency: a few times a week Alcohol type: hard liquor Drug use: Never Substance use type: does not use Housing: house 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
[2023-04-07] MEDS: Cephalexin 500 MG CAP PO (12:14)
== END 2023-04-07 12:39 | disposition home or self-care (01) ==
PROVIDERS: Emergency Provider Student in an Organized Health Care Education/Training Program; PCP Internal Medicine
DX: S80.12XA Contusion of left lower leg, initial encounter (principal); S21.132A Puncture wound without foreign body of left front wall of thorax without penetration into thoracic cavity, initial encounter; S16.1XXA Strain of muscle, fascia and tendon at neck level, initial encounter; W12.XXXA Fall on and from scaffolding, initial encounter; J98.11 Atelectasis; Y99.0 Civilian activity done for income or pay
CPT/HCPCS: 99283; 99284; 71046; 72125; 73590; 99285

== ENCOUNTER → 2023-04-12 13:50 | Outpatient (BNVA) | payer MEDICARE, BC, SELFPAY | PROVIDERS: PCP Internal Medicine; Referring Provider Internal Medicine; Visit Provider Student in an Organized Health Care Education/Training Program | DX: S80.12XA Contusion of left lower leg, initial encounter (principal); W12.XXXA Fall on and from scaffolding, initial encounter | CPT/HCPCS: 99213 ==

== ENCOUNTER → 2023-04-21 13:03 | Outpatient (CLI) | payer MEDICARE, BC, SELFPAY ==
--- NOTE | 2023-04-21 | DI.US_ITS ---
Exam(s) US LOWER EXTREMITY VENOUS LT EXAM: US LOWER EXTREMITY VENOUS LT CLINICAL HISTORY: LT LEG PAIN, INJURY,M79.662, ? DVT TECHNIQUE: Left lower extremity venous ultrasound performed using grayscale, color-flow, and spectra l Doppler analysis. COMPARISON: No exams were available for comparison FINDINGS: The left common femoral, femoral and popliteal veins demonstrate normal compressibility, augmentation , and color Doppler. The posterior tibial and peroneal veins are patent. The saphenofemoral junction is unremarkable. There is an 11.5 x 2.3 x 6.6 cm fluid collection in the left superior calf. The s oft tissues are unremarkable. IMPRESSION: 1. No evidence of a left lower extremity DVT. 2. 11.5 x 2.3 x 6.6 cm fluid collection in the left superior calf. Differential considerations inclu de Zhang cyst, seroma or resolving hematoma. Please correlate clinically. DATA REPOSITORY:
== END ==
PROVIDERS: PCP Internal Medicine; Visit Provider Physician Assistant Medical
DX: M79.662 Pain in left lower leg (principal); R22.42 Localized swelling, mass and lump, left lower limb
CPT/HCPCS: 93971

== ENCOUNTER → 2023-04-26 10:30 | Outpatient (BNVA) | payer MEDICARE, BC, SELFPAY | PROVIDERS: PCP Internal Medicine; Referring Provider Internal Medicine; Visit Provider Student in an Organized Health Care Education/Training Program | DX: S80.12XA Contusion of left lower leg, initial encounter (principal); X58.XXXA Exposure to other specified factors, initial encounter | CPT/HCPCS: 99214 ==

== ENCOUNTER → 2023-05-17 10:10 | Outpatient (BNVA) | payer MEDICARE, BC, SELFPAY | PROVIDERS: PCP Internal Medicine; Referring Provider Internal Medicine; Visit Provider Student in an Organized Health Care Education/Training Program | DX: S80.12XD Contusion of left lower leg, subsequent encounter (principal); X58.XXXD Exposure to other specified factors, subsequent encounter | CPT/HCPCS: 99213 ==

== ENCOUNTER 2025-06-26 11:57 | Outpatient (CLI) | payer MEDICARE, BC, SELFPAY ==
--- NOTE | 2025-06-26 11:45 | DI.RAD_ITS ---
Exam(s) XR ELBOW RT LIMITED EXAM: XR ELBOW RT LIMITED CLINICAL HISTORY: RIGHT ARM PAIN. TECHNIQUE: 2D digital imaging was performed of the left elbow. Three images were obtained. AP, lateral and oblique views were obtained. COMPARISON: No exams were available for comparison FINDINGS: BONES: No acute fracture is present. No bony destructive lesion is seen. There is a large enthesophyte at the triceps insertion site. JOINTS: The elbow is normally aligned. No joint effusion is seen. SOFT TISSUE: Normal. IMPRESSION: Olecranon spur. DATA REPOSITORY: RADIATION DOSE DELIVERED:
== END 2025-06-26 11:58 | disposition home or self-care (01) ==
LOC: DIORS 11:57
PROVIDERS: PCP Internal Medicine; Referring Provider Internal Medicine; Visit Provider Student in an Organized Health Care Education/Training Program
DX: M79.601 Pain in right arm (principal); S46.211A Strain of muscle, fascia and tendon of other parts of biceps, right arm, initial encounter; X50.0XXA Overexertion from strenuous movement or load, initial encounter
CPT/HCPCS: 99214; 73070

== ENCOUNTER → 2025-06-26 13:36 | Outpatient (CLI) | payer MEDICARE, BC, SELFPAY ==
--- NOTE | 2025-06-26 13:00 | DI.MRI_ITS ---
Exam(s) MR UPPER JOINT RT WO EXAM: MR UPPER JOINT RT WO CLINICAL HISTORY: ? BICEPS RUPTURE, PAIN, traumatic rupture rt distal biceps tendon. TECHNIQUE: Multiplanar multisequence MRI was performed. COMPARISON: Plain films performed earlier the same day FINDINGS: Elbow joint: No joint effusion. No loose bodies. Bones: There is no fracture or contusion pattern. Enthesophyte at the triceps insertion on the olecranon. There is a focal bony prominence at the radial tubercle. There is mild spurring the condyles and some irregularity at the capitellum, consistent with degenerative changes. Biceps tendon: There is a full-thickness tear of the biceps tendon with mild retraction and surrounding fluid. Brachialis tendon: There is some edema distally but no visible discrete tear. This may be secondary to adjacent edema related to biceps tendon tear. Common flexor tendons: Intact. No tendinosis. Common extensor tendons: Intact. No tendinosis. Triceps tendon: Intact. No tendinosis. Soft tissues: Unremarkable. IMPRESSION: Full-thickness biceps tendon tear with mild retraction and surrounding fluid. DATA REPOSITORY:
== END ==
LOC: DI 13:37
PROVIDERS: PCP Internal Medicine; Visit Provider Student in an Organized Health Care Education/Training Program
DX: S46.211A Strain of muscle, fascia and tendon of other parts of biceps, right arm, initial encounter (principal); X58.XXXA Exposure to other specified factors, initial encounter; M25.721 Osteophyte, right elbow
CPT/HCPCS: 73221

== ENCOUNTER → 2025-07-02 14:58 | Outpatient (BNVA) | payer MEDICARE, BC, SELFPAY | PROVIDERS: PCP Internal Medicine; Referring Provider Internal Medicine; Visit Provider Student in an Organized Health Care Education/Training Program | DX: S46.211A Strain of muscle, fascia and tendon of other parts of biceps, right arm, initial encounter (principal); X58.XXXA Exposure to other specified factors, initial encounter | CPT/HCPCS: 99214 ==

== ENCOUNTER 2025-07-05 12:44 | Day surgery (SDC) | payer MEDICARE, BC, SELFPAY ==
[2025-07-05] VITALS (21 sets, daily range): BP systolic 121–170; BP diastolic 80–98; PULSE 59–68; RESP 13–18; TEMP 36.2–36.4; O2SAT 93–97; BMI 28.5
--- NOTE | 2025-07-05 07:18 | PDOC.DSDIS_ITS ---
Date of service: 07/05/25 Discharge Plan Disposition Patient Disposition: Home Condition: Stable Discharge Details Attending Provider: Miguel Narvaez Primary Care Provider: Rony Treviño Home Meds and New Rx's Prescriptions: New naproxen 250 mg tablet 250 - 500 mg PO BID PRN (Reason: moderate pain and swelling) Qty: 40 0RF oxycodone 5 mg tablet 5 - 10 mg PO .q4-6h MDD 30 mg PRN (Reason: severe pain) Qty: 18 0RF Continued chlorthalidone 15 mg tablet 15 mg PO DAILY diltiazem HCl 120 mg Capsule,Ext.Rel 24h Degradable 120 mg PO DAILY rosuvastatin 5 mg tablet 5 mg PO DAILY Patient Comments: TAKE ONE TABLET BY MOUTH ONCE DAILY acetaminophen [Tylenol Extra Strength] 500 mg tablet 500 mg PO Q6H PRNQty: 30 0RF tumeric Discontinued naproxen 250 mg tablet 250 - 500 mg PO BID PRNQty: 40 0RF Rx Instructions: take with a meal Discharge Instructions Additional Instructions: Surgery: Right distal biceps tendon repair 07/05/25 Activity: Light use hand and fingers okay. Keep elbow bent/ flexed 90 degrees for 2 weeks and then slowly extend to full over the next 4 weeks. Use the sling for support for 6 weeks. Avoid reaching with the elbow straight, lifting more t rogers a couple pounds, or resisted supination of the forearm for 8 weeks. A physical therapy prescription will be sent electronically at follow up to start around 3 weeks postop. PT protocol: Maintain elbow 9 degrees flexion for 2 weeks Gradual progression to full active range of motion weeks 2?6 Isometrics after 8 weeks Concentric strengthening after 12 weeks Eccentric strengthening after 16 weeks Prescriptions: Naproxen 250 mg take 1-2 every 12 hours with a meal as needed for moderate pain Oxycodone 5 mg take 1-2 every 4-6 hours as needed for severe pain You may use [id number] Tylenol (acetaminophen) as needed for mild pain. These pain medications may be taken all at once or in different combinations as needed. Also, recommend Colace (docusate) as a stool softener as surgery and pain medicine cause constipation. You may try [id number] diphenhydramine (Benadryl) 25-50 mg nightly as a sleep aid Dressings: Leave splint and dressing in place until follow-up. Keep clean and dry at all times. Follow-up: 10-[address] Narvaez You may take off the leg compression stockings this evening at home. You may also leave them on a few days longer if you have a history of leg swelling or edema. Let us know right away if you develop any redness, drainage, fevers, chest pain, or trouble breathing. Do not drink alcohol or drive for at least 24 hours after anesthesia. Please call the office during business hours with any questions or concerns. Stand Alone Forms: Portal Information Discharge Orders Discharge Orders: Discharge Order (Routine); Ordered 07/05/25 Ordered By: Selena Jj DS: Diagnosis Discharge Diagnosis (1) Traumatic rupture of right distal biceps tendon: Status: Acute
--- NOTE | 2025-07-05 07:32 | W.PM.OP ---
Operative Note Operative Note PRE-OP DIAGNOSIS: Right distal biceps tendon rupture POST-OP DIAGNOSIS: same PROCEDURE: Right distal biceps tendon repair, CPT #84740 SURGEON: Miguel Narvaez PLANT OPERATOR CONTROL ROOM OPERATOR: Selena Jj ANESTHESIA TYPE: Local By Surgeon, General LMA/ETT and Primary Nerve Block Refer to Anesthesia Record ESTIMATED BLOOD LOSS: 10 COMPLICATIONS: None Patient was transported to: PACU Patient's condition: stable Implants: Arthrex distal biceps button Indications: Please see complete medical record for details. Findings: Near?complete rupture distal biceps tendon with moderate retraction and very small thin remnant tendon. The residual tendon had significant widening and probable pre-existing tendinopathy. Procedure Description: In the operating room, general anesthesia was induced. The patient was positioned supine on the operating room table. All bony prominences were well-padded. Preoperative antibiotics were administered. The right elbow was prepped and draped in the usual sterile fashion. The correct patient, procedure, and side of the procedure were all verified prior to incision. The volar forearm was positioned in supination and a moderately sized longitudinal incision was localized fluoroscopically over the radial tuberosity and then preinjected with 0.25% bupivacaine containing epinephrine. The skin was incised and care was taken to retract and mobilize numerous bridging neurovascular structures, and a few crossing veins were ligated, and the fascia opened and digital dissection used to open the space toward the palpable radial tuberosity. Care was taken to use caution with retractors and the biceps bursa was exposed. The ruptured tendon was then found slightly more proximally and numerous white and pieces with a very small lateral remnant still hanging on more proximally deeply and ulnarly. The majority the tendon was carefully put back together with different clamps and then it was all secured meticulously with #2 FiberWire fiber loop starting proximally working distally recreating tendon structure and working back proximally using the traction on the repair sutures to achieve more length and fixation and then backed distally before coming out the widened distal stump. This tendon structure was more amenable to a partial inlay and some surface onlay technique. Some tendon was trimmed from the edges so that the very tip was bullet size but the remainder of the large part was allowed around the prepared tendon to allow for most optimal healing of some of the tendon in a shallow socket and the remainder on the abraded roughened radial tuberosity surface. The bicortical pin was placed at the appropriate position on the obvious denuded radial tuberosity using fluoroscopic assistance taking care to just carefully penetrate the far side. The low-profile reamer was used over the top to make a shallow socket. The repair sutures were then loaded on the button using modified tension slide technique with the free ends passed back up through the tendon fiber loop construct using a free tapered needle. The button was carefully delivered through the socket, flipped just on the far side, checked fluoroscopically, and the tendon was delivered and secured nicely into and onto the socket and radial tuberosity. It was quite stable through motion and testing. Final knots were tied. The deep wound was copiously irrigated. Reamings had been previously irrigated and removed. Superficial wound was irrigated. Hemostasis was appropriate. Radial artery was visualized intact. 2-0 Monocryl was used to close subcutaneous tissue followed by 3-0 Monocryl running subcuticular skin and then skin glue and Mepilex Band-Aid. The extremity was placed into a long-arm posterior plaster splint and about 90 degrees flexion The patient awoke from anesthesia without complication and was transferred to the recovery room in a stable condition. Date of Procedure: 07/05/25
--- NOTE | 2025-07-05 12:03 | ANES.PREOP_ITS ---
General Info Date of Service Date Performed: 07/05/25 Height: 5 ft 11 in Weight: 92.986 kg Body Mass Index (BMI): 28.5 Surgical Procedure: Operation Date: 07/05/25 13:25 Proposed Procedure Side Surgeon p Distal Bicep Tendon Repair Right Miguel Narvaez MD Meds Allergies and Home Medications Allergies Allergy/AdvReac Type Severity Reaction Status Date / Time amoxicillin Allergy as a young Verified 07/04/25 08:27 adult-see comment lisinopril AdvReac Intermediate lightheaded Verified 07/04/25 08:27 ness Home Medication ?Medication ?Instructions ?Recorded diltiazem HCl 120 mg 120 mg PO DAILY 09/25/18 capsule,extended release 24 hr, controlled rosuvastatin 5 mg tablet 5 mg PO DAILY 07/07/20 acetaminophen 500 mg tablet 500 mg PO Q6H PRN #30 tabs 02/03/21 (Tylenol Extra Strength) chlorthalidone 15 mg tablet 15 mg PO DAILY 05/13/22 naproxen 250 mg tablet 250 - 500 mg (1 - 2 x 250 mg ) PO 08/12/22 BID PRN #40 tabs tumeric 07/05/25 Current Visit Medications: Current Medications Generic Name Dose Route Start Last Admin Trade Name Freq PRN Reason Stop Dose Admin Ringer's Solution 1,000 mls @ 30 mls/hr 07/05/25 06:00 IV 07/05/25 23:59 INFUSION AKHIL Cefazolin Sodium/Dextrose 2 gm in 50 mls @ 100 mls/hr 07/05/25 06:00 Ancef Duplex IVPB 07/05/25 23:59 PREOP AKHIL Tranexamic Acid/Sodium Chloride 1,000 mg in 100 mls @ 600 mls/hr 07/05/25 06:00 IVPB 07/05/25 23:59 PREOP AKHIL Oxycodone HCl 0 mg 07/05/25 07:18 Oxycodone 5 Mg Tab PO 08/04/25 07:17 Q3H PRN PRN Pain Sodium Chloride 0 ml 07/05/25 06:00 Normal Saline Flush 10 Ml Syr IV 07/05/25 23:59 PRN PRN Sodium Chloride 0 ml 07/05/25 06:00 Normal Saline 10 Ml Vial IJ 07/05/25 23:59 DIRECTED PRN Sterile Water 0 ml 07/05/25 06:00 Water,Injection,Sterile 10 Ml Vial IJ 07/05/25 23:59 DIRECTED PRN PFSH Active Problems Active Problems: Problem Status Onset Code Traumatic rupture of right distal biceps tendon Acute S46.211A Left carpal tunnel syndrome Acute G56.02 Right carpal tunnel syndrome Acute G56.01 Right trigger finger Acute M65.30 Ganglion cyst of tendon sheath of right hand Acute M67.441 Left knee pain Acute M25.562 Strain of left quadriceps muscle, fascia and tendon, initial encounter Acute S76.112A Internal derangement of left knee Acute M23.92 Traumatic tear of right rotator cuff Acute S46.011A Status post arthroscopy of left knee Acute 11/25/20 Z98.890 Contusion of left wrist Acute S60.212A Medical History Medical History Hyperlipemia Hypertension Rupture of right proximal biceps tendon Spinal stenosis Surgical History Surgical History History of back surgery Hx of colonoscopy Hx of rhinoplasty S/P rotator cuff repair Tobacco Smoking/Tobacco Use Status: Former Tobacco Use Alcohol Alcohol Intake: current Alcohol intake frequency: a few times a week Alcohol type: hard liquor Substance Use Substance use: Never Substance use type: does not use Vital Signs and Lab Results Vital Signs Most Recent Vital Signs in EMR: Temp Pulse Resp BP Pulse Ox 36.4 C L 64 16 149/88 H 97 07/05/25 13:17 07/05/25 13:17 07/05/25 13:17 07/05/25 13:17 07/05/25 13:17 Anesthesia Assessment and Plan Anesthesia History Personal History: No History of Anesthesia Complications Family History: No Family History of Anesthesia Complications Exercise Tolerance Exercise Tolerance: Metabolic Equivalents>4 Cardiac & Pulmonary Exam Cardiac Exam: Normal S1/S2 Heart Sounds Pulmonary Exam: Clear Bilateral Breath Sounds Implantable Cardiac Device Does patient have a Pacemaker or an ICD?: No Airway Exam Known Difficult Airway: No Mallampati Class: 1 Mouth Opening: Normal (> 3cm) Thyromental Distance: Greater than 3 cm Neck Range of Motion: Full ROM Neck Circumference: Normal Teeth Condition: Normal Dentition ASA Classification ASA Score: ASA 2 Emergency Case?: No NPO Status NPO Status: NPO Clears >2 hours, Solids >8 hours Anesthesia Plan Resuscitation Status: Full Code Anesthesia Technique: General Anesthesia Airway Planned: Endotracheal Tube Pain Management: Surgeon and patient request nerve block Monitors Used: Standard Monitors Preoperative Comments:: 70 yo for distal bicep repair. Sig PMHx: HTN, spinal stenosis. Former smoker, occ EtOH. Previous Anes: - shoulder, prop, phenyl, glide 3 grade 1, east mask with OPA. ISB with midaz 2, bupiv/exparl, 5/10 pain noted on postop note due to chest wall pain. - Knee scope, LMA 5, no issues.
[2025-07-05] MEDS: Lactated Ringers 1,000 ML 30 ML IV (14:02)
--- NOTE | 2025-07-05 14:42 | W.ANESNERVE ---
Nerve Block Single Injection Procedure Date and Time Date Performed: 07/05/25 Procedure Start: 14:34 Location Where Procedure Performed Procedure Location: Day Surgery Unit Reason Performed: Postoperative Analgesia Requesting Provider: Miguel Narvaez Timeout Performed Timeout Performed: Yes Monitoring Used ECG, Blood Pressure and SpO2 Sterility Sterility: Hand Hygiene, Surgical Cap, Surgical Mask, Sterile Gloves and Chlorhexidine Sedation Given During Procedure Sedation Given (Indicate Dose Given): Propofol IV Dose:: 40 mg Patient Mental Status Patient Mental Status: Sedate with meaningful communication Nerve Block 1st Nerve Block: Laterality: Right Block Type: Interscalene Ultrasound Image Saved?: Yes Needle / Catheter Used: 100mm SonoPlex II Local Anesthetic Bolus (Indicate Dose Given): Lidocaine used for local infiltration of skin, Bupivacaine 0.5% Dose:: 10 mL and Exparel Dose:: 10 mL Additives (Indicate Dose Given): None Ultrasound: Sterile probe cover and gel used Nerve Stimulator: No twitch or parasthesia noted < 0.5 mA (<0.6 mA) Paresthesia: None Procedure Tolerated: No Complications Procedure Outcome: Successful Procedure Comment: Recommend less sedation the future. Was awake and talking, but difficulty with follwoing commands. Performed By: Yo Cha
[2025-07-05] MEDS: ceFAZolin 2 GM/50 ML BAG IVPB (14:51)
[2025-07-05] MEDS: TRANEXAMIC ACID/SOD. CHL. 1,000 MG/100 ML BAG 600 MG IVPB (14:56)
[2025-07-05] MEDS: Bupivacaine 0.25% Pres-Free W/EPI 30 ML VIAL (15:34)
--- NOTE | 2025-07-05 16:23 | DI.RAD_ITS ---
Exam(s) XR HUMERUS RT EXAM: XR HUMERUS RT CLINICAL HISTORY: Traumatic rupture of right distal biceps tendon. TECHNIQUE: 2D digital imaging was performed. COMPARISON: No exams were available for comparison FINDINGS: Fluoroscopy was provided during biceps tendon repair. See procedure report details. IMPRESSION: Radiation exposure index/cumulative dose:Ka,r= 0.1921mGy DATA REPOSITORY: RADIATION DOSE DELIVERED:
--- NOTE | 2025-07-05 16:51 | W.ANESPOSTOP ---
Postoperative Evaluation Date, Time and Location Date Performed: 07/05/25 Time Performed: 16:51 Patient Location: PACU Vital Signs Most Recent Imported Vital Signs: Most Recent Vital Signs Temp Pulse Resp BP Pulse Ox 36.4 C L 65 18 144/80 H 96 07/05/25 16:50 07/05/25 16:46 07/05/25 16:46 07/05/25 16:46 07/05/25 16:46 Pain Score Most Recent Pain Score: Most Recent Pain Score Pain Level 5 07/05/25 16:50 Assessment Mental Status: Awake (Alert & Oriented to Patient Baseline) Airway and Respiratory Function: Patent airway with normal (patient baseline) respiratory exam Cardiovascular Function: Hemodynamically Stable Hydration Status: Adequately Hydrated Nausea & Vomiting: No Nausea or Vomiting Pain: Pain is tolerable per patient Peripheral Nerve Block: Regional nerve block not resolved at time of post operative discharge (Block is not as effective as I was hoping. Able to move fingers, has some strength in his shoulder, is complaining of tightness in his medial bicep and elbow. )
[2025-07-05] MEDS: oxyCODONE 5 MG TAB PO (17:37)
== END 2025-07-05 18:06 | disposition home or self-care (01) ==
LOC: SUR 12:44
PROVIDERS: PCP Internal Medicine; Visit Provider Student in an Organized Health Care Education/Training Program
PROC: (CPT 24341; principal; 2025-07-05 13:15)
DX: S46.211A Strain of muscle, fascia and tendon of other parts of biceps, right arm, initial encounter (principal); X58.XXXA Exposure to other specified factors, initial encounter; G89.18 Other acute postprocedural pain
CPT/HCPCS: 24342; 64415; 76000; 73060; J0131; J0665; J0666; J0690; J1100; J1885; J2371; J2405; J2704

== ENCOUNTER → 2025-07-17 13:46 | Outpatient (BNVA) | payer MEDICARE, BC, SELFPAY | PROVIDERS: PCP Internal Medicine; Referring Provider Internal Medicine; Visit Provider Student in an Organized Health Care Education/Training Program | DX: S46.211D Strain of muscle, fascia and tendon of other parts of biceps, right arm, subsequent encounter (principal); X58.XXXD Exposure to other specified factors, subsequent encounter | CPT/HCPCS: 99024 ==